=== PATIENT | male | born 2000 | race Caucasian/White ===

== ENCOUNTER 2024-01-04 08:49 | Emergency (ER) | payer SELFPAY ==
[2024-01-04 08:53] VITALS: BP 134/82; PULSE 65; TEMP 36.7; O2SAT 100; BMI 36.3
--- NOTE | 2024-01-04 09:02 | XR_ITS ---
The [address] [address] Patient Name: ROBBY CELIS MRN: [id number] date: 2000 Sex: M Assigned Patient Location: ED.MAIN Current Patient Location: Accession/Order Number: [id number] Exam Date: 01/04/2024 09:18 Report Date: 01/04/2024 10:21 At the request of: NOE RUIZ Procedure: XR wrist RT min 3V PROCEDURE: XR hand RT min 3V, XR wrist RT min 3V HISTORY: Trauma ; fall from roof 6 days ago COMPARISON: None. FINDINGS: BONES:Nondisplaced fracture through base of ulnar styloid process. SOFT TISSUES:No visible soft tissue swelling. EFFUSION:None visible. OTHER: Negative. XR/XR wrist RT min 3V IMPRESSION: 1. Acute, nondisplaced ulnar styloid process fracture. Electronically authenticated by: KAY ARNDT Date: 01/04/2024 10:21
--- NOTE | 2024-01-04 09:02 | XR_ITS ---
The [address] [address] Patient Name: ROBBY CELIS MRN: [id number] date: 2000 Sex: M Assigned Patient Location: ED.MAIN Current Patient Location: Accession/Order Number: [id number] Exam Date: 01/04/2024 09:18 Report Date: 01/04/2024 10:21 At the request of: NOE RUIZ Procedure: XR hand RT min 3V PROCEDURE: XR hand RT min 3V, XR wrist RT min 3V HISTORY: Trauma ; fall from roof 6 days ago COMPARISON: None. FINDINGS: BONES:Nondisplaced fracture through base of ulnar styloid process. SOFT TISSUES:No visible soft tissue swelling. EFFUSION:None visible. OTHER: Negative. XR/XR hand RT min 3V IMPRESSION: 1. Acute, nondisplaced ulnar styloid process fracture. Electronically authenticated by: KAY ARNDT Date: 01/04/2024 10:21
--- NOTE | 2024-01-04 09:39 | ED.UPPEXIN1 ---
HPI HPI - Extremity Injury (Upper) General Chief Complaint: Extremity Injury, Upper Stated Complaint: Extremity Injury, Upper Time Seen by Provider: 01/04/24 09:02 Source: patient Mode of arrival: walk-in History of Present Illness HPI narrative: Patient is here complaining of pain in his right wrist. He fell from a roof several days ago. He was evaluated at a different institution with x-rays there being told they were negative. He is right-handed dominant. He also has some bruising to his anterior lateral chest wall images were not done in that area. He denies any shortness of breath or chest discomfort. He says sometimes when he coughs it is a little sore. Does not any pain in his left chest or in the sternum. No head or neck injury at the time. No injury to his lower extremities. He has bruising of his upper biceps area but no pain in his elbow. He only discomfort is over the distal forearm on the ulnar side of the wrist. Related Data Home Medications ?Medication ?Instructions ?Recorded ?Confirmed No Known Home Medications 01/04/24 01/04/24 Allergies Allergy/AdvReac Type Severity Reaction Status Date / Time Cephalosporins Allergy Severe itching Verified 01/04/24 08:56 Opioid HPI Opioid Management Most Recent Pain and Opioid Data: No Data to Display Exam Narrative Exam Narrative: Well-hydrated well-nourished male vital signs are stable no respiratory distress. He has no apparent head or neck injury. Spontaneous cervical range of motion. No bruising to head and neck. Extremities show ecchymosis tenderness and discomfort over the dorsal and ulnar aspect of his distal forearm. Neurovascular examination is normal. There does not appear to be any rotational deformity of the digits. The elbow is asymptomatic. The shoulder joint is asymptomatic. He does not have any crepitation. Minor discomfort with aggressive palpation of his right chest wall. No tenderness in the right upper quadrant. I do not believe he is got any likelihood of liver or splenic injury. Constitutional Vital Signs, click to edit/add: Last Vital Signs Temp 98.0 F 01/04/24 08:53 Pulse 65 01/04/24 08:53 Resp 16 01/04/24 08:53 BP 134/82 01/04/24 08:53 Pulse Ox 100 01/04/24 08:53 O2 Del Method Room Air 01/04/24 08:53 Course Vital Signs Vital signs: Vital Signs Temperature 98.0 F 01/04/24 08:53 Pulse Rate 65 01/04/24 08:53 Respiratory Rate 16 01/04/24 08:53 Blood Pressure 134/82 01/04/24 08:53 Pulse Oximetry 100 01/04/24 08:53 Oxygen Delivery Method Room Air 01/04/24 08:53 Temperature 98.0 F 01/04/24 08:53 Pulse Rate 65 01/04/24 08:53 Respiratory Rate 16 01/04/24 08:53 Blood Pressure 134/82 01/04/24 08:53 Pulse Oximetry 100 01/04/24 08:53 Oxygen Delivery Method Room Air 01/04/24 08:53 MDM - Extremity Injury (Upper) MDM Narrative Medical decision making narrative: We agree that imaging of the chest would not be necessary at this time. X-rays of his wrist and hand do confirm a slightly displaced distal ulnar fracture. This will be read by the radiologist but he is clinically symptomatic in this area and the bare minimum has ligamentous injury. We will place him in a immobilizing splint to the wrist. Will follow-up with visit with Dr. Freeman this coming Monday. Discharge Plan Discharge Stand Alone Forms: Portal Instructions Chief Complaint: Extremity Injury, Upper Clinical Impression: Fracture of right ulna Patient Disposition: Home, Self-Care Time of Disposition Decision: 09:41 Prescriptions / Home Meds: No Action No Known Home Medications Print Language: Frisian Additional Instructions: Wear splint at all times/follow-up with Dr. Freeman this week Referrals: LEO BAEZ [Primary Care Provider] - 1 week
== END 2024-01-04 09:52 | disposition home or self-care (01) ==
PROVIDERS: Emergency Provider Emergency Medicine Emergency Medical Services; PCP Family Medicine
DX: S52.601A Unspecified fracture of lower end of right ulna, initial encounter for closed fracture (principal); W13.2XXA Fall from, out of or through roof, initial encounter
CPT/HCPCS: 73110; 73130; 99284

== ENCOUNTER 2024-01-15 11:57 | Outpatient (OUT) | payer OTHER, SELFPAY ==
--- NOTE | 2024-01-15 | XR_ITS ---
The [address] [address] Patient Name: ROBBY CELIS MRN: [id number] date: 2000 Sex: M Assigned Patient Location: Current Patient Location: Accession/Order Number: [id number] Exam Date: 01/15/2024 12:10 Report Date: 01/16/2024 13:04 At the request of: KAY AGUIRRE Procedure: XR wrist RT min 3V PROCEDURE: XR wrist RT min 3V COMPARISON: 01/04/2024 HISTORY: RIGHT WRIST PAIN FINDINGS: BONES:Lucency again demonstrated through the base of the ulnar styloid process consistent with a fracture, unchanged from the prior exam. No new fracture or dislocation SOFT TISSUES:Negative. No visible soft tissue swelling. EFFUSION:None visible. OTHER: Negative. XR/XR wrist RT min 3V IMPRESSION: Stable fracture ulnar styloid process Electronically authenticated by: JACOB SHELTON Date: 01/16/2024 13:04
== END 2024-01-15 11:58 | disposition home or self-care (01) ==
LOC: EC 11:57
PROVIDERS: PCP Family Medicine; Visit Provider Orthopaedic Surgery
DX: S52.614D Nondisplaced fracture of right ulna styloid process, subsequent encounter for closed fracture with routine healing (principal)
CPT/HCPCS: 73110

== ENCOUNTER 2024-02-12 10:13 | Outpatient (OUT) | payer OTHER, SELFPAY ==
--- NOTE | 2024-02-12 | XR_ITS ---
The [address] [address] Patient Name: ROBBY CELIS MRN: [id number] date: 2000 Sex: M Assigned Patient Location: Current Patient Location: Accession/Order Number: [id number] Exam Date: 02/12/2024 10:19 Report Date: 02/14/2024 06:33 At the request of: KAY AGUIRRE Procedure: XR wrist RT min 3V PROCEDURE: XR wrist RT min 3V HISTORY: RIGHT WRIST PAIN COMPARISON: XR wrist right 01/15/2024 FINDINGS: BONES:Increased density of prior fracture line at base of ulnar styloid process. Normal alignment is maintained. Unremarkable radius and carpal bones. SOFT TISSUES:No visible soft tissue swelling. EFFUSION:None visible. OTHER: Negative. XR/XR wrist RT min 3V IMPRESSION: 1. Normal alignment and partial/near complete osseous healing of ulnar styloid process fracture. Electronically authenticated by: KAY ARNDT Date: 02/14/2024 06:33
== END 2024-02-12 10:14 | disposition home or self-care (01) ==
LOC: EC 10:13
PROVIDERS: PCP Family Medicine; Visit Provider Orthopaedic Surgery
DX: S52.614D Nondisplaced fracture of right ulna styloid process, subsequent encounter for closed fracture with routine healing (principal)
CPT/HCPCS: 73110

== ENCOUNTER 2025-03-25 10:05 | Emergency (ER) | payer OTHER, SELFPAY ==
--- OUTSIDE RECORDS SUMMARY | 2025-03-26 08:40 | XMS_ITS | CCD ---
Author Organization [facility] Care Team Providers Care Tender Labor Name Role Phone DR NEENA XIAO Primary Care Unavailable PALOMO MARIEE Admitting Unavailable PALOMO MARIEE Attending Unavailable WAYNE GANDHI Consulting Unavailable Jacob Acharya Consulting Unavailable STEFANIA ZEPEDA Admitting Unavailable STEFANIA ZEPEDA Attending Unavailable DR NEENA XIAO Primary Care Unavailable MERARY ALTMAN Attending Unavailable Unavailable Primary Care Provider UnavailOlivier Franco DO Primary Care Provider OLIVIER POSEY Primary Care Unavailable DEJAN DREW Attending Unavailable DEJAN DREW Attending Unavailable DEJAN DREW Referring Unavailable FURLONG, OLIVIER Palencia Primary Care Unavailable FURLONG, OLIVIER Palencia Attending Unavailable FURLONG, OLIVIER Palencia Referring Unavailable FURLONG, OLIVIER G Primary Care Unavailable Furlong Olivier WADE Primary Care Provider [phone] BRENDEN HYATT Attending Unavailable FURLONG, OLIVIER Palencia Referring Unavailable FURLONG, OLIVIER G Primary Care Unavailable FURLONG, OLIVIER Palencia Attending Unavailable FURLONG, OLIVIER G Referring Unavailable FURLONG, OLIVIER G Primary Care Unavailable FURLONG, OLIVIER G Attending Unavailable FURLONG, OLIVIER G Referring Unavailable FURLONG, OLIVIER G Primary Care Unavailable FURLONG, OLIVIER G Attending Unavailable FURLONG, OLIVIER G Referring Unavailable FURLONG, OLIVIER G Primary Care Unavailable FURLONG, OLIVIER G Attending Unavailable FURLONG, OLIVIER G Referring Unavailable FURLONG, OLIVIER G Primary Care Unavailable FURLONG, OLIVIER G Attending Unavailable FURLONG, OLIVIER G Referring Unavailable FURLONG, OLIVIER G Primary Care Unavailable FURLONG, OLIVIER G Attending Unavailable FURLONG, OLIVIER G Referring Unavailable FURLONG, OLIVIER G Primary Care Unavailable FURLONG, OLIVIER G Attending Unavailable TATY, OLIVIER Palencia Referring Unavailable MONICANG, OLIVIER Palencia Primary Care Unavailable TATY, OLIVIER Palencia Attending Unavailable TATY, OLIVIER Palencia Referring Unavailable TATY, OLIVIER Palencia Primary Care Unavailable Olivier Posey MD Primary Care Provider [phone] MIKA MA Attending Unavailable Sylvia Richards APRN Attending Provider [phone] Olivier Posey DO Primary Care Provider NONE, XXXX Primary Care Physician Unavailab le Allergies Allergy Classification Reported Allergen(s) Allergy Type Date of Onset Reaction(s) Facility (7 sources) Cephalosporins (Antibiotic); Translations: [CEPHALOSPORINS] Drug allergy (disorder) 4 Itching [facility] Repository (1 source) Codeine Drug Allergy [facility] Rep[facility] (1 source) Morphine Drug Allergy [facility] Repository (4 sources) walnut; Translations: [WALNUT] Drug allergy (disorder) 5 [facility] Repository (10 sources) Cephalosporins (Antibiotic) Drug Allergy 0 Rash, Itching [facility] Work Phone: (3 sources) Codeine Drug Allergy 2 Other: See Comments, Unknown [facility] Work Phone: (1 source) Morphine Drug Allergy 2 Other: See Comments [facility] Work Phone: (9 sources) walnut allergenic extract Drug Allergy 5 Other: See Comments, Anaphylaxis, Unknown [facility] Work Phone: (3 sources) Cephalosporins (Antibiotic); Translations: [cephalosporins] Drug Allergy 0 Other, Itching, Rash, Itching (finding) [facility] Medications Current Medications Medication Drug Class(es) Dates Sig (Normalized) Sig (Original) azithromycin 250 mg oral tablet (2 sources) Macrolide Antimicrobial Start: 07-12-2024 End: 07-16-2024 azithromycin (ZITHROMAX) 250 mg tablet Indications: Pneumonia of left lower lobe due to infectious organism Take 2 tablets the first day, then 1 tablet daily for 4 days. 6 tablet 07/12/2024 07/16/2024 Active doxycycline monohydrate 100 mg oral capsule (2 sources) Tetracycline-class Drug Start: 02-03-2025 End: 02-13-2025 doxycycline (Monodox) 100 MG capsule Indications: Abscess , Skin and Soft Tissue Infection Take 1 capsule (100 mg) by mouth in the morning and 1 capsule (100 mg) before bedtime. Do all this for 10 days. Take with at least 8 ounces (large glass) of water, do not lie down for 30 minutes after. 20 capsule 02/03/2025 02/13/2025 Active [id number] 0.3 ml EPINEPHrine 1 mg/ml auto-injector (11 sources) alpha-Adrenergic Agonist, beta-Adrenergic Agonist, Catecholamine Start: 11-24-2022 EPINEPHrine (EPIPEN) 0.3 mg/0.3 mL auto-injector Inject 0.3 mL (0.3 mg total) into the appropriate muscle as needed (allergic reaction to walnuts). 1 each 11/24/2022 Active fluticasone propionate 0.05 mg/actuat metered dose nasal spray (4 sources) Corticosteroid Start: 10-24-2023 take 2 spray(s) nasal route in the morning fluticasone propionate (FLONASE) 50 mcg/actuation nasal spray Indications: Bilateral chronic serous otitis media Administer 2 sprays into each nostril in the morning. 16 g 5 10/24/2023 Active ondansetron 4 mg disintegrating oral tablet (1 source) Serotonin-3 Receptor Antagonist Start: 03-21-2025 take 1 tablet by mouth every eight hours as needed for nausea and vomiting Ondansetron 4 mg tablet,disintegra ting Active 4 MG PO Every 8 hours as needed for nausea and vomiting 15 March 21, 2025 12:00am Complies with drug therapy phentermine hydrochloride 37.5 mg oral capsule (14 sources) Sympathomimetic Amine Anorectic Start: 06-17-2024 End: 09-02-2024 take 32-32.9 capsules by mouth once daily before breakfast phentermine 37.5 MG capsule Indications: Class 1 obesity due to excess calories without serious comorbidity with body mass index (BMI) of 32.0 to 32.9 in adult Take 1 capsule (37.5 mg total) by mouth every morning before breakfast. 30 capsule 09/02/2024 Active Start: 09-21-2023 End: 01-01-2024 take 33-33.9 capsules by mouth once daily before breakfast phentermine 37.5 MG capsule Indications: Class 1 obesity due to excess calories without serious comorbidity with body mass index (BMI) of 33.0 to 33.9 in adult Take 1 capsule (37.5 mg total) by mouth every morning before breakfast. 30 capsule 11/23/2023 01/01/2024 Discontinued (Therapy completed) Completed/Discontinued Medications Medication Drug Class(es) Dates Sig (Normalized) Sig (Original) amoxicillin 875 mg / clavulanate 125 mg oral tablet (2 sources) Penicillin-class Antibacterial Start: 09-16-2024 End: 03-21-2025 take 1 tablet by mouth every twelve hours Amoxicillin-Pot Clavulanate 875-125 mg tablet Discontinued 1 TAB PO Every 12 hours 14 7 September 16, 2024 12:00am March 21, 2025 5:36pm Problems Active Problems Problem Classification Problem Date Documented Da te Episodic/Chronic Anxiety disorders (20 sources) Anxiety; Translations: [Anxiety disorder, unspecified] Onset: 04-22-2020 06-25-2022 Chronic E Codes: Fall (2 sources) Fall Onset: 12-30-2023 Headache; including migraine (12 sources) Migraine; Translations: [Migraine, unspecified, not intractable, without status migrainosus] Onset: 04-19-2022 06-25-2022 Chronic Joint disorders and dislocations; trauma-related (11 sources) Derangement of right knee; Translations: [Unspecified internal derangement of right knee] Onset: 06-10-2019 04-19-2022 Chronic Malaise and fatigue (1 source) Fatigue; Translations: [Other fatigue] Onset: 03-25-2025 Episodic Nausea and vomiting (1 source) Nausea and vomiting; Translations: [Nausea with vomiting, unspecified] Onset: 03-25-2025 Episodic Nonspecific chest pain (4 sources) Chest pain, unspecified; Translations: [CHEST PAIN UNSPECIFIED] Onset: 10-23-2021 Episodic Other connective tissue disease (2 sources) Pain of toe of left foot; Translations: [Pain in left toe(s)] 02-03-2025 Episodic Other gastrointestinal disorders (1 source) Loose stool; Translations: [Other fecal abnormalities] 10-25-2024 Episodic Other gastrointestinal disorders (1 source) Other fecal abnormalities; Translations: [Other fecal abnormalities] Onset: 10-24-2024 Episodic Other gastrointestinal disorders (2 sources) Diarrhea; Translations: [Diarrhea, unspecified] Onset: 10-24-2024 Episodic Other nutritional; endocrine; and metabolic disorders (1 source) Obesity; Translations: [Other obesity due to excess calories] Onset: 04-20-2022 06-25-2022 Chronic Other nutritional; endocrine; and metabolic disorders (19 sources) Obesity caused by energy imbalance; Translations: [Class 2 obesity due to excess calories without serious comorbidity with body mass index (BMI) of 36.0 to 36.9 in adult] Onset: 04-20-2022 Resolved: 12-22-2022 12-22-2022 Chronic Other nutritional; endocrine; and metabolic disorders (1 source) Severe obesity; Translations: [Class 2 severe obesity due to excess calories with serious comorbidity and body mass index (BMI) of 38.0 to 38.9 in adult [place] [place] 08-06-2024 Chronic Other nutritional; endocrine; and metabolic disorders (2 sources) Body mass index 30+ - obesity; Translations: [Obesity, unspecified] 10-24-2023 Chronic Other nutritional; endocrine; and metabolic disorders (1 source) Morbid (severe) obesity due to excess calories; Translations: [Morbid (severe) obesity due to excess calories] Onset: 09-02-2024 Chronic Other nutritional; endocrine; and metabolic disorders (1 source) Body mass index (BMI) 38.0-38.9, adult; Translations: [Body mass index (BMI) 38.0-38.9, adult] Onset: 09-02-2024 Chronic Other nutritional; endocrine; and metabolic disorders (1 source) Other obesity due to excess calories; Translations: [Other obesity due to excess calories] Onset: 08-13-2024 Chronic Other nutritional; endocrine; and metabolic disorders (1 source) Body mass index (BMI) 34.0-34.9, adult; Translations: [Body mass index (BMI) 34.0-34.9, adult] Onset: 08-13-2024 Chronic Other nutritional; endocrine; and metabolic disorders (1 source) Body mass index (BMI) 36.0-36.9, adult; Translations: [Body mass index (BMI) 36.0-36.9, adult] Onset: 12-22-2022 Chronic Other nutritional; endocrine; and metabolic disorders (1 source) Body mass index (BMI) 37.0-37.9, adult; Translations: [Body mass index (BMI) 37.0-37.9, adult] Onset: 01-01-2024 Chronic Other skin disorders (2 sources) Ingrowing great toenail; Translations: [Ingrowing nail] 10-25-2024 Episodic Other skin disorders (1 source) Ingrowing nail; Translations: [Ingrowing nail] Onset: 10-24-2024 Episodic Other skin disorders (2 sources) Ingrowing nail; Translations: [Ingrowing nail] 02-03-2025 Episodic Otitis media and related conditions (1 source) Bilateral chronic serous otitis; Translations: [Chronic serous otitis media, bilateral] 10-24-2023 Chronic Residual codes; unclassified (1 source) Chill; Translations: [Chills (without fever)] Onset: 03-25-2025 Episodic Skin and subcutaneous tissue infections (3 sources) Abscess of toe of left foot; Translations: [Cutaneous abscess of left foot] 02-03-2025 Episodic Unclassified (1 source) ESOPHAGITIS UNSPEC WITHOUT BLEEDING; Translations: [ESOPHAGITIS UNSPEC WITHOUT BLEEDING] Onset: 10-25-2021 Unclassified (1 source) EMS Onset: 12-30-2023 Unclassified (1 source) Obesity, class 1; Translations: [Obesity, class 1] Onset: 08-13-2024 Unclassified (1 source) Obesity, class 2; Translations: [Obesity, class 2] Onset: 12-22-2022 Unclassified (1 source) Weight Check Onset: 07-16-2024 Unclassified (1 source) Mass Onset: 03-18-2024 Viral infection (1 source) Viral disease; Translations: [Viral infection, unspecified] Episodic Past or Other Problems Problem Classification Problem Date Documented Da te Episodic/Chronic Allergic reactions (12 sources) Allergic reaction; Translations: [Allergy, unspecified, initial encounter] Onset: 09-23-2020 06-25-2022 Episodic E Codes: Fall (1 source) Unspecified fall, initial encounter; Translations: [Unspecified fall, initial encounter] Onset: 12-30-2023 Episodic Esophageal disorders (12 sources) Esophagitis; Translations: [Esophagitis, unspecified without bleeding] Onset: 10-25-2021 06-25-2022 Episodic Mood disorders (11 sources) Mood disorders Onset: 03-18-2024 Resolved: 06-17-2024 06-17-2024 Other connective tissue disease (1 source) Other specified soft tissue disorders; Translations: [Other disorders of soft tissue] 03-18-2024 Episodic Other injuries and conditions due to external causes (12 sources) Angioedema; Translations: [Angioneurotic edema, initial encounter] Onset: 09-23-2020 06-25-2022 Episodic Other injuries and conditions due to external causes (9 sources) Abrasion and/or friction burn of multiple sites; Translations: [Unspecified multiple injuries, initial encounter] Onset: 01-01-2024 01-01-2024 Episodic Other injuries and conditions due to external causes (2 sources) Unspecified multiple injuries, initial encounter; Translations: [Unspecified multiple injuries, initial encounter] Onset: 12-30-2023 Episodic Other injuries and conditions due to external causes (1 source) Unspecified injury of thorax, initial encounter; Translations: [Unspecified injury of thorax, initial encounter] Onset: 12-30-2023 Episodic Other lower respiratory disease (2 sources) Cough; Translations: [Acute cough] Onset: 07-12-2024 Episodic Other lower respiratory disease (12 sources) Lung mass; Translations: [Other nonspecific abnormal finding of lung field] Onset: 04-19-2022 06-25-2022 Episodic Other non-traumatic joint disorders (11 sources) Pain in right shoulder; Translations: [Pain in joint, shoulder region] Onset: 04-19-2022 04-19-2022 Episodic Other non-traumatic joint disorders (11 sources) Ankle pain; Translations: [Pain in right ankle and joints of right foot] Onset: 04-20-2022 04-20-2022 Episodic Other nutritional; endocrine; and metabolic disorders (1 source) Weight loss Onset: 06-17-2024 Episodic Other upper respiratory disease (1 source) Pain in throat Onset: 07-12-2024 Episodic Other upper respiratory infections (2 sources) Upper respiratory infection; Translations: [Acute upper respiratory infection, unspecified] Onset: 07-12-2024 07-12-2024 Episodic Pneumonia (except that caused by tuberculosis or sexually transmitted disease) (4 sources) Left lower zone pneumonia; Translations: [Pneumonia, unspecified organism] Onset: 07-16-2024 07-12-2024 Episodic Spondylosis; intervertebral disc disorders; other back problems (11 sources) Backache; Translations: [Dorsalgia, unspecified] Onset: 04-19-2022 04-19-2022 Episodic Sprains and strains (20 sources) Sprain of right ankle; Translations: [Sprain of unspecified ligament of right ankle, sequela] Onset: 04-19-2022 04-19-2022 Episodic Superficial injury; contusion (12 sources) Right wrist contusion; Translations: [Contusion of right wrist, initial encounter] Onset: 12-30-2023 01-01-2024 Episodic Results Test Name Value Interpretation Reference Range Facility XR CHEST 2 VWSon 07-17-2024 XR CHEST 2 VWS XR CHEST 2 VWS XR CHEST 2 VWS HISTORY: Left lower lobe pneumonia, cough COMPARISON: None FINDINGS: PA and lateral upright films obtained. The cardiomediastinal silhouette is within normal limits. No sizeable pneumothorax or pleural effusion. No focal consolidation. IMPRESSION: * No acute cardiopulmonary process. Approved by Myke Abdalla MD on 07/17/2024 7:34 AM IVasu MD have personally reviewed the image(s) and agree with and/or edited the report Finalized by Vasu Hernández MD on 07/17/2024 8:20 AM Normal [facility] POCT Influenza A/Influenza B /SARS-COV-2 VeritorOrdered By: Shania Davis on 07-12-2024 External Poct Influenza A Antigen Negative [facility] External Poct Influenza B Antigen Negative [facility] SARS-CoV-2 (COVID-19) Ag IA.rapid Ql (Resp) Negative [facility] XR WRIST RT MIN 3 VWSon 12-02 XR WRIST RT MIN 3 VWS XR WRIST RT MIN 3 VWS CLINICAL INFORMATION: Injury TECHNIQUE: XR WRIST RT MIN 3 VWS 3 views right wrist were obtained. There is no acute osseous, articular, or soft tissue abnormality. IMPRESSION: Negative exam. Finalized by Kaden Crandall MD on 12/30/2023 11:18 AM [facility] CARDIAC SUZY ADMITon 022 CK [Catalytic activity/Vol] 249 U/L Normal 39-308 [facility] Comment on above: Performed By: #### C MADM LIPA, CMP #### [facility] [address] [address] [address] Elsa Zambrano CK.MB [Mass/Vol] 2.07 ng/mL Normal <=3.60 [facility] Comment on above: Performed By: #### C YOVANY YAA, CMP #### [facility] [address] [address] [address] Elsa Zambrano HSTROP 17.7 pg/mL Normal 4.0-76.1 [facility] Comment on above: Result Comment: CUT- OFF POINTS HAVE BEEN ESTABLISHED BASED ON THE FOURTH UNIVERSAL DEFINITIONS OF MYOCARDIAL INFARCTION. THE UPPER REFERENCE LIMIT (URL) OF TROPONIN, DEFINED THE 99TH PERCENTILE OF cTnI DISTRIBUTION IN A REFERENCE POPULATION, HAS BEEN CONFIRMED THE DECISION THRESHOLD FOR IA DIAGNOSIS. Performed By: #### C FELTON LIPA, CMP #### [facility] [address] [address] [address] Elsa Zambrano RICHI 123 ng/mL Critically high 16-96 [facility] Comment on above: Performed By: #### C NICKMYOVANYA, CMP #### [facility] [address] [address] [address] Elsa Zambrano CBC AUTO DIFFon 10-23-2021 BASO # 0.0 103/ul Normal 0.0-0.1 [facility] Comment on above: Performed By: #### C BC #### [facility] [address] [address] [address] Elsa Zambrano Basophils/100 WBC (Bld) 0.3 % Normal 0.2-2.0 [facility] Comment on above: Performed By: #### C BC #### [facility] [address] [place] [address] Dr. Elsa Zambrano EO # 0.1 103/ul Normal 0.0-0.7 [facility] Comment on above: Performed By: #### C BC #### [facility] [address] [place] [address] Dr. Elsa Zambrano Eosinophils/100 WBC (Bld) 0.9 % Normal 0.9-7.0 [facility] Comment on above: Performed By: #### C BC #### [facility] [address] [place] [address] Dr. Elsa Zambrano Erythrocyte distribution width (RBC) [Ratio] 12.2 % Normal 11.0-15.0 [facility] Comment on above: Performed By: #### C BC #### [facility] [address] [place] [address] Dr. Elsa Zambrano Hematocrit (Bld) [Volume fraction] 43.4 % Normal 42.0-54.0 [facility] Comment on above: Performed By: #### C BC #### [facility] [address] [place] [address] Dr. Elsa Zambrano Hemoglobin (Bld) [Mass/Vol] 14.5 g/dL Normal 14.0-18.0 [facility] Comment on above: Performed By: #### C BC #### [facility] [address] [place] [address] Dr. Elsa Zambrano IG # 0.04 10e3/ul Critically high 0.00-0.03 [facility] Comment on above: Performed By: #### C BC #### [facility] [address] [place] [address] Dr. Elsa Zambrano IG % 0.3 % Normal 0.0-0.5 [facility] Comment on above: Performed By: #### C BC #### [facility] [address] [place] [address] Dr. Elsa Zambrano LYMPH # 2.0 103/ul Normal 1.2-3.8 [facility] Comment on above: Performed By: #### C BC #### [facility] [address] [place] [address] Dr. Elsa Zambrano Lymphocytes/100 WBC (Bld) 17.1 % Critically low 20.5-60.0 [facility] Comment on above: Performed By: #### C BC #### [facility] [address] [place] [address] Dr. Elsa Zambrano MANUAL DIFF REQ NO Normal [facility] Comment on above: Performed By: #### C BC #### [facility] [address] [place] [address] Dr. Elsa Zambrano MCH (RBC) [Entitic mass] 27.8 pg Normal 25.9-34.0 [facility] Comment on above: Performed By: #### C BC #### [facility] [address] [place] [address] Dr. Elsa Zambrano MCHC (RBC) [Mass/Vol] 33.4 g/dL Normal 29.9-35.2 [facility] Comment on above: Performed By: #### C BC #### [facility] [address] [place] [address] Dr. Elsa Zambrano MCV (RBC) [Entitic vol] 83.3 fL Normal 80.0-94.0 [facility] Comment on above: Performed By: #### C BC #### [facility] [address] [place] [address] Dr. Elsa Zambrano MONO # 0.8 103/ul Normal 0.3-0.8 [facility] Comment on above: Performed By: #### C BC #### [facility] [address] [place] [address] Dr. Elsa Zambrano Monocytes/100 WBC (Bld) 7.1 % Normal 1.7-12.0 [facility] Comment on above: Performed By: #### C BC #### [facility] [address] [place] [address] Dr. Elsa Zambrano NEUT # 8.7 103/ul Critically high 1.4-6.5 [facility] Comment on above: Performed By: #### C BC #### [facility] [address] [place] [address] Dr. Elsa Zambrano Neutrophils/100 WBC (Bld) 74.3 % Normal 43.0-75.0 [facility] Comment on above: Performed By: #### C BC #### [facility] [address] [place] [address] Dr. Elsa Zambrano Platelet mean volume (Bld) [Entitic vol] 9.6 fL Normal 9.5-13.5 [facility] Comment on above: Performed By: #### C BC #### [facility] [address] [place] [address] Dr. Elsa Zambrano PLT 327 103/ul Normal 150-450 [facility] Comment on above: Performed By: #### C BC #### [facility] [address] [place] [address] Dr. Elsa Zambrano RBC 5.21 106/ul Normal 4.70-6.10 [facility] Comment on above: Performed By: #### C BC #### [facility] [address] [place] [address] Dr. Elsa Zambrano WBC 11.7 103/ul Critically high 4.0-11.0 [facility] Comment on above: Performed By: #### C BC #### [facility] [address] [place] [address] Dr. Elsa Zambrano LIPASEon 10-23-2021 Lipase [Catalytic activity/Vol] 56.0 U/L Critically low 73.0-393.0 [facility] Comment on above: Performed By: #### C CL YA, CMP #### [facility] [address] [place] [address] Dr. Elsa Zambrano PROF 14(COMP METB)on 022 Albumin [Mass/Vol] 4.0 g/dL Normal 3.4-5.0 [facility] Comment on above: Performed By: #### C CL YA, CMP #### [facility] [address] [place] [address] Dr. Elsa Zambrano Albumin/Globulin [Mass ratio] 1.1 {ratio} Normal [facility] Comment on above: Performed By: #### C MADM, LIPA, CMP #### [facility] [address] [address] [address] Elsa Zambrano ALP [Catalytic activity/Vol] 117 U/L Critically high 46-116 [facility] Comment on above: Performed By: #### C MADM, LIPA, CMP #### [facility] [address] [address] [address] Elsa Zambrano ALT [Catalytic activity/Vol] 39 U/L Normal 16-63 [facility] [facility] Comment on above: Performed By: #### C MADM, LIPA, CMP #### [facility] [address] [address] [address] Elsa Zambrano Anion gap [Moles/Vol] 11.6 mmol/L Normal [facility] Comment on above: Performed By: #### C MADM, LIPA, CMP #### [facility] [address] [address] [address] Elsa Zambrano AST [Catalytic activity/Vol] 19 U/L Normal 15-37 [facility] Comment on above: Performed By: #### C MADM, LIPA, CMP #### [facility] [address] [address] [address] Elsa Zambrano Bilirubin [Mass/Vol] 0.3 mg/dL Normal 0.2-1.0 [facility] Comment on above: Performed By: #### C MADM, LIPA, CMP #### [facility] [address] [address] [address] Elsa Zambrano Calcium [Mass/Vol] 8.8 mg/dL Normal 8.5-10.1 [facility] Comment on above: Performed By: #### C MADM, LIPA, CMP #### [facility] [address] [address] [address] Elsa Zambrano Chloride [Moles/Vol] 103 mmol/L Normal 98-107 [facility] Comment on above: Performed By: #### C MADM, LIPA, CMP #### [facility] [address] [address] [address] Elsa Zambrano CO2 [Moles/Vol] 28.6 mmol/L Normal 21.0-32.0 [facility] Comment on above: Performed By: #### C MADM, LIPA, CMP #### [facility] [address] [address] [address] Elsa Zambrano Creatinine [Mass/Vol] 1.20 mg/dL Normal 0.70-1.30 [facility] Comment on above: Performed By: #### C MADM, LIPA, CMP #### [facility] [address] [address] [address] Elsa Zambrano EGFR-AF CITIZEN OF [place] >60 Normal >=60 [facility] Comment on above: Performed By: #### C MADM, LIPA, CMP #### [facility] [address] [place] [address] Dr. Elsa Zambrano EGFR-NON AF CITIZEN OF [place] >60 Normal >=60 [facility] Comment on above: Performed By: #### C MADM, LIPA, CMP #### [facility] [address] [place] [address] Dr. Elsa Zambrano Globulin (S) [Mass/Vol] 3.7 g/dL Normal [facility] Comment on above: Performed By: #### C MADM, LIPA, CMP #### [facility] [address] [place] [address] Dr. Elsa Zambrano Glucose [Mass/Vol] 90 mg/dL Normal 74-106 [facility] Comment on above: Performed By: #### C MADM, LIPA, CMP #### [facility] [address] [address] [address] Elsa Zambrano Potassium [Moles/Vol] 4.2 mmol/L Normal 3.5-5.1 [facility] Comment on above: Performed By: #### C MADM, LIPA, CMP #### [facility] [address] [place] [address] Dr. Elsa Zambrano Protein [Mass/Vol] 7.7 g/dL Normal 6.1-8.2 [facility] Comment on above: Performed By: #### C MADM, LIPA, CMP #### [facility] [address] [place] [address] Dr. Elsa Zambrano Sodium [Moles/Vol] 139 mmol/L Normal 136-145 [facility] Comment on above: Performed By: #### C CL YA, CMP #### [facility] [address] [address] [address] Elsa Zambrano Urea nitrogen [Mass/Vol] 21.0 mg/dL Critically high 6.4-19.3 [facility] Comment on above: Performed By: #### C CL YA, CMP #### [facility] [address] [address] [address] Elsa Zambrano Urea nitrogen/Creatinine [Mass ratio] 17.5 mg/mg Normal [facility] Comment on above: Performed By: #### C CL YA, CMP #### [facility] [address] [address] [address] Elsa Zambrano XR CHEST 2 Von 10-23-2021 XR CHEST 2 V EXAMINATION: XR CHES T 2 V HISTORY: Chest pain COMPARISON: Chest x-rays to 2020 TECHNIQUE: PA and lateral chest x-rays FINDINGS: The lung parenchyma is free of consolidation or infiltrate. No pneumothorax or pleural effusion. The cardiac, mediastinal and hilar contours are normal. The visualized osseous structures exhibit no gross abnormality. IMPRESSION: Normal chest x-rays Electronically authenticated by: JACOB ACHARYA Date: 2021-10-23 17:33 Normal [facility] Coding Summary.on 10-05-2018 Coding Summary. CODING DATE: 10/05/2018 FINAL [facility] STATUS: Home (Routine DC) PAYOR: [facility] [place] ADMIT DX: REASON FOR VISIT DX: J06.9 Acute upper respiratory infection, unspecified FINAL DX: PRINCIPAL: J06.9 Acute upper respiratory infection, unspecified SECONDARY: PROCEDURES DOCTOR NAME DATE NOTE: The code number assigned matches the documented diagnosis and / or procedure in the patient's chart. However, the narrative phrase printed from the coding software may appear abbreviated, or result in slightly different terminology. Coded By: Milagro Atkins CphT Date Saved: 10/05/2018 12:44 pm Normal [facility] C Strep Screenon 09-22-2018 Protein mass conc Microbiology PROCEDURE: Strep Screen Culture [R1] SOURCE: Throat BODY SITE: COLLECTED DATE/TIME: 09/20/2018 11:23 EDT RECEIVED DATE/TIME: 09/20/2018 19:18 EDT START DATE/TIME: 09/20/2018 19:18 EDT FREE TEXT SOURCE: ALVARO AGUILAR, Rashaad JOHN MD, Rashaad Brunner FINAL REPORTS Final Report [] Verified Date/Time: 09/22/2018 07:03 EDT No Pathogenic Streptococcus Isolated Performing Locations R1: This test was performed at: [facility], [address] [place] [address], [id number] , [facility] Comment on above: Performed By: #### [id number] #### [facility] [address] [place] [id number] Vital Signs Date Time Vital Sign Value Performing Clinician Facility 03-21-2025 17:41-0400 Body height 180.34 cm Olivier Furlong DO Work Phone: [facility] 03-21-2025 17:41-0400 Body mass index (BMI) [Ratio] 34.1 kg/m2 Olivier Furlong DO Work Phone: [facility] 03-21-2025 17:41-0400 Body temperature 98.3 [degF] Olivier Furlong DO Work Phone: [facility] 03-21-2025 17:41-0400 Body weight 110.9 kg Olivier Furlong DO Work Phone: [facility] 03-21-2025 17:41-0400 Diastolic blood pressure 69 mm[Hg] Olivier Furlong DO Work Phone: [facility] 03-21-2025 17:41-0400 Heart rate 87 /min Olivier Furlong DO Work Phone: [facility] 03-21-2025 17:41-0400 Respiratory rate 18 /min Olivier Furlong DO Work Phone: [facility] 03-21-2025 17:41-0400 SaO2% (BldA) [Mass fraction] 96 % Olivier Fonsecalong DO Work Phone: [facility] 03-21-2025 17:41-0400 Systolic blood pressure 113 mm[Hg] Olivier Fonsecalong DO Work Phone: [facility] 02-03-2025 10:15-0400 Body height 182.9 cm Mika Ma DPM FACFAS Work Phone: [facility] 02-03-2025 10:15-0400 Body mass index (BMI) [Ratio] 32.01 kg/m2 Mika Ma DPM FACFAS Work Phone: [facility] 02-03-2025 10:15-0400 Body weight 107.05 kg Mika Ma DPM FACFAS Work Phone: [facility] 02-03-2025 10:15-0400 Diastolic blood pressure 76 mm[Hg] Mika Ma DPM FACFAS Work Phone: [facility] 02-03-2025 10:15-0400 Heart rate 82 /min Mika Ma DPM FACFAS Work Phone: [facility] 02-03-2025 10:15-0400 Systolic blood pressure 126 mm[Hg] Mika Ma DPM FACFAS Work Phone: [facility] 10-24-2024 15:17-0400 Body height 177.8 cm Brenden Hyatt HEALTHCARE SCIENCE SPECIALIST-PHYSIOTHERAPY AIDE Work Phone: [facility] 10-24-2024 15:17-0400 Body mass index (BMI) [Ratio] 33.92 kg/m2 Brenden Hyatt HEALTHCARE SCIENCE SPECIALIST-PHYSIOTHERAPY AIDE Work Phone: [facility] 10-24-2024 15:17-0400 Body temperature 98.29 [degF] Brenden Hyatt HEALTHCARE SCIENCE SPECIALIST-PHYSIOTHERAPY AIDE Work Phone: [facility] 10-24-2024 15:17-0400 Body weight 107.23 kg Brenden PINA Work Phone: [facility] [employer] [facility] 10-24-2024 15:17-0400 Diastolic blood pressure 60 mm[Hg] Brenden Hyatt APRN-PHYSIOTHERAPY AIDE Work Phone: [facility] [employer] [facility] 10-24-2024 15:17-0400 Heart rate 90 /min Brenden Hyatt APRN-PHYSIOTHERAPY AIDE Work Phone: [facility] [employer] [facility] 10-24-2024 15:17-0400 Respiratory rate 18 /min Brenden Hyatt APRN-PHYSIOTHERAPY AIDE Work Phone: [facility] [employer] [facility] 10-24-2024 15:17-0400 SaO2% (BldA) [Mass fraction] 98 % Brenden Hyatt APRN-PHYSIOTHERAPY AIDE Work Phone: [facility] 10-24-2024 15:17-0400 Systolic blood pressure 100 mm[Hg] Brenden Hyatt APRN-PHYSIOTHERAPY AIDE Work Phone: [facility] 09-16-2024 14:51-0400 Body height 180.34 cm [facility] 09-16-2024 14:51-0400 Body mass index (BMI) [Ratio] 33 kg/m2 [facility] 09-16-2024 14:51-0400 Body temperature 97.8 [degF] [facility] 09-16-2024 14:51-0400 Body weight 107.5 kg [facility] 09-16-2024 14:51-0400 Diastolic blood pressure 82 mm[Hg] [facility] 09-16-2024 14:51-0400 Heart rate 58 /min [facility] 09-16-2024 14:51-0400 Respiratory rate 18 /min [facility] 09-16-2024 14:51-0400 SaO2% (BldA) [Mass fraction] 98 % [facility] 09-16-2024 14:51-0400 Systolic blood pressure 134 mm[Hg] [facility] 09-02-2024 18:08-0500 Body mass index (BMI) [Ratio] 32.71 kg/m2 Olivier Furlong DO Work Phone: [facility] 09-02-2024 18:08-0500 Body weight 103.42 kg Olivier Furlong DO Work Phone: [facility] [employer] [facility] 09-02-2024 18:08-0500 Heart rate 85 /min Olivier Furlong DO Work Phone: [facility] 09-02-2024 18:08-0500 SaO2% (BldA) [Mass fraction] 99 % Olivier Furlong DO Work Phone: [facility] 08-13-2024 16:01-0500 Body height 177.8 cm Olivier Furlong DO Work Phone: [facility] 08-13-2024 16:01-0500 Body mass index (BMI) [Ratio] 34.12 kg/m2 Olivier Furlong DO Work Phone: [facility] [employer] [facility] 08-13-2024 16:01-0500 Body temperature 98.49 [degF] Olivier Furlong DO Work Phone: [facility] 08-13-2024 16:01-0500 Body weight 107.86 kg Olivier Furlong DO Work Phone: [facility] 08-13-2024 16:01-0500 Diastolic blood pressure 70 mm[Hg] Olivier Furlong DO Work Phone: [facility] [employer] [facility] 08-13-2024 16:01-0500 Heart rate 90 /min Olivier Furlong DO Work Phone: [facility] 08-13-2024 16:01-0500 Respiratory rate 18 /min Olivier Furlong DO Work Phone: [facility] 08-13-2024 16:01-0500 SaO2% (BldA) [Mass fraction] 98 % Olivier Furlong DO Work Phone: [facility] [employer] [facility] 08-13-2024 16:01-0500 Systolic blood pressure 100 mm[Hg] Olivier Furlong DO Work Phone: [facility] 07-16-2024 14:45-0500 Body height 177.8 cm Olivier Furlong DO Work Phone: [facility] 07-16-2024 14:45-0500 Body mass index (BMI) [Ratio] 36.19 kg/m2 Olivier Furlong DO Work Phone: [facility] 07-16-2024 14:45-0500 Body temperature 98.01 [degF] Olivier Furlong DO Work Phone: [facility] 07-16-2024 14:45-0500 Body weight 114.4 kg Olivier Furlong DO Work Phone: [facility] 07-16-2024 14:45-0500 Diastolic blood pressure 78 mm[Hg] Olivier Furlong DO Work Phone: [facility] 07-16-2024 14:45-0500 Heart rate 129 /min Olivier Furlong DO Work Phone: [facility] 07-16-2024 14:45-0500 Respiratory rate 18 /min Olivier Furlong DO Work Phone: [facility] 07-16-2024 14:45-0500 SaO2% (BldA) [Mass fraction] 99 % Olivier Furlong DO Work Phone: [facility] 07-16-2024 14:45-0500 Systolic blood pressure 100 mm[Hg] Olivier Furlong DO Work Phone: [facility] 07-12-2024 09:29-0500 Body height 177.8 cm Olivier Furlong DO Work Phone: [facility] 07-12-2024 09:29-0500 Body mass index (BMI) [Ratio] 35.99 kg/m2 Olivier Furlong DO Work Phone: [facility] 07-12-2024 09:29-0500 Body temperature 99.39 [degF] Olivier Furlong DO Work Phone: [facility] 07-12-2024 09:29-0500 Body weight 113.76 kg Olivier Furlong DO Work Phone: [facility] 07-12-2024 09:29-0500 Diastolic blood pressure 60 mm[Hg] Olivier Furlong DO Work Phone: [facility] 07-12-2024 09:29-0500 Heart rate 118 /min Olivier Furlong DO Work Phone: [facility] 07-12-2024 09:29-0500 Respiratory rate 20 /min Olivier Furlong DO Work Phone: [facility] 07-12-2024 09:29-0500 SaO2% (BldA) [Mass fraction] 96 % Olivier Furlong DO Work Phone: [facility] 07-12-2024 09:29-0500 Systolic blood pressure 100 mm[Hg] Olivier Furlong DO Work Phone: [facility] [employer] [facility] 03-18-2024 13:32-0400 Body height 177.8 cm Olivier Furlong DO Work Phone: [facility] 03-18-2024 13:32-0400 Body mass index (BMI) [Ratio] 36.27 kg/m2 Olivier Furlong DO Work Phone: [facility] 03-18-2024 13:32-0400 Body temperature 98.4 [degF] Olivier Furlong DO Work Phone: [facility] 03-18-2024 13:32-0400 Body weight 114.67 kg Olivier Furlong DO Work Phone: [facility] 03-18-2024 13:32-0400 Diastolic blood pressure 68 mm[Hg] Olivier Furlong DO Work Phone: [facility] 03-18-2024 13:32-0400 Heart rate 67 /min Olivier Furlong DO Work Phone: [facility] [employer] [facility] 03-18-2024 13:32-0400 Respiratory rate 18 /min Olivier Furlong DO Work Phone: [facility] 03-18-2024 13:32-0400 SaO2% (BldA) [Mass fraction] 97 % Olivier Furlong DO Work Phone: [facility] 03-18-2024 13:32-0400 Systolic blood pressure 122 mm[Hg] Olivier Furlong DO Work Phone: [facility] 01-01-2024 13:18-0400 Body height 177.8 cm Olivier Furlong DO Work Phone: [facility] 01-01-2024 13:18-0400 Body mass index (BMI) [Ratio] 37.19 kg/m2 Olivier Furlong DO Work Phone: [facility] 01-01-2024 13:18-0400 Body temperature 98.29 [degF] Olivier Furlong DO Work Phone: [facility] 01-01-2024 13:18-0400 Body weight 117.57 kg Olivier Furlong DO Work Phone: [facility] 01-01-2024 13:18-0400 Diastolic blood pressure 70 mm[Hg] Olivier Furlong DO Work Phone: [facility] 01-01-2024 13:18-0400 Heart rate 82 /min Olivier Furlong DO Work Phone: [facility] 01-01-2024 13:18-0400 SaO2% (BldA) [Mass fraction] 97 % Olivier Furlong DO Work Phone: [facility] 01-01-2024 13:18-0400 Systolic blood pressure 110 mm[Hg] Olivier Furlong DO Work Phone: [facility] 11-23-2023 13:00-0400 Body height 180.3 cm Olivier Furlong DO Work Phone: [facility] 11-23-2023 13:00-0400 Body mass index (BMI) [Ratio] 33.54 kg/m2 Olivier Furlong DO Work Phone: [facility] 11-23-2023 13:00-0400 Body temperature 98.6 [degF] Olivier Furlong DO Work Phone: [facility] 11-23-2023 13:00-0400 Body weight 109.09 kg Olivier Furlong DO Work Phone: [facility] 11-23-2023 13:00-0400 Diastolic blood pressure 70 mm[Hg] Olivier Furlong DO Work Phone: [facility] 11-23-2023 13:00-0400 Heart rate 97 /min Olivier Furlong DO Work Phone: [facility] 11-23-2023 13:00-0400 Respiratory rate 18 /min Olivier Furlong DO Work Phone: [facility] 11-23-2023 13:00-0400 SaO2% (BldA) [Mass fraction] 97 % Olivier Furlong DO Work Phone: [facility] 11-23-2023 13:00-0400 Systolic blood pressure 100 mm[Hg] Olivier Furlong DO Work Phone: [facility] 10-24-2023 13:34-0400 Body height 180.3 cm Olivier Furlong DO Work Phone: [facility] 10-24-2023 13:34-0400 Body mass index (BMI) [Ratio] 35.45 kg/m2 Olivier Furlong DO Work Phone: [facility] 10-24-2023 13:34-0400 Body temperature 98.29 [degF] Olivier Furlong DO Work Phone: [facility] [employer] [facility] 10-24-2023 13:34-0400 Body weight 115.3 kg Olivier Furlong DO Work Phone: [facility] [employer] [facility] 10-24-2023 13:34-0400 Diastolic blood pressure 70 mm[Hg] Olivier Furlong DO Work Phone: [facility] 10-24-2023 13:34-0400 Heart rate 98 /min Olivier Furlong DO Work Phone: [facility] 10-24-2023 13:34-0400 SaO2% (BldA) [Mass fraction] 97 % Olivier Furlong DO Work Phone: [facility] [employer] [facility] 10-24-2023 13:34-0400 Systolic blood pressure 112 mm[Hg] Olivier Furlong DO Work Phone: [facility] 09-21-2023 14:50-0400 Diastolic blood pressure 80 mm[Hg] Olivier Furlong DO Work Phone: [facility] 09-21-2023 14:50-0400 Systolic blood pressure 112 mm[Hg] Olivier Furlong DO Work Phone: [facility] [employer] [facility] 09-21-2023 14:07-0400 Body height 180.3 cm Olivier Furlong DO Work Phone: [facility] 09-21-2023 14:07-0400 Body mass index (BMI) [Ratio] 35.04 kg/m2 Olivier Furlong DO Work Phone: [facility] 09-21-2023 14:07-0400 Body temperature 98.91 [degF] Olivier Posey DO Work Phone: [employer] 09-21-2023 14:07-0400 Body weight 113.94 kg [facility]insng [facility] 09-21-2023 14:07-0400 Heart rate 81 /min [facility] 09-21-2023 14:07-0400 Respiratory rate 18 /min Olivier Martinsng DO [facility] 09-21-2023 [id number] SaO2% (BldA) [Mass fraction] 97 % Olivier Martinsng DO Work Phone: [facility] Encounters Encounter Date Encounter Type Care Provider Facility Start: 03-25-2025 End: 03-25-2025 Patient encounter procedure Jasmina Wheeler [facility] Start: 03-21-2025 End: 03-21-2025 ambulatory Olivier Posey DO Work Phone: [facility] Work Phone: Start: 03-21-2025 End: 03-21-2025 Patient encounter procedure Sylvia Gloria HEALTHCARE SCIENCE SPECIALIST [facility] Work Phone: Start: 02-03-2025 End: 02-03-2025 Bamboo flowsheet Mika Ma DPM FACFAS [facility] Start: 02-03-2025 End: 02-03-2025 Bamboo flowsheet Mika Ma DPM FACFAS [facility] Phone[facility] Start: 02-03-2025 End: 02-03-2025 Office outpatient new 30 minutes Mika Ma DPM FACFAS Work Phone: [facility] Comment on above: Abscess, toe, left ( Primary Dx); Onychocryptosis; Pain in left toe(s) Start: 02-03-2025 End: 02-03-2025 ambulatory MIKA MA Not Available Start: 10-24-2024 End: 10-24-2024 ambulatory [facility] Start: 10-24-2024 End: 10-24-2024 Office outpatient visit 15 minutes [facility] HEALTHCARE SCIENCE SPECIALIST-PHYSIOTHERAPY AIDE [facility] Comment on above: Loose stools (Primar y Dx); Ingrown left big toenail Start: 09-16-2024 End: 09-16-2024 ambulatory [facility] Work Phone: Start: 09-16-2024 End: 09-16-2024 Patient encounter procedure [facility] Work Phone: Start: 09-02-2024 End: 09-02-2024 ambulatory [facility] Start: 09-02-2024 End: 09-02-2024 Office outpatient visit 10 minutes Olivier Slime Taty DO Work Phone: [facility] Comment on above: Class 1 obesity due to excess calories without serious comorbidity with body mass index (BMI) of 32.0 to 32.9 in adult Start: 08-13-2024 End: 08-13-2024 Office outpatient visit 15 minutes Olivier Slime Fonsecasantang DO Work Phone: [facility] Comment on above: Class 1 obesity due to excess calories without serious comorbidity with body mass index (BMI) of 34.0 to 34.9 in adult (Primary Dx) Start: 08-13-2024 End: 08-13-2024 ambulatory [facility] Start: 08-06-2024 End: 08-06-2024 Refill [facility] DO Work Phone: [facility] Comment on above: Class 2 severe obesi ty due to excess calories with serious comorbidity and body mass index (BMI) of 38.0 to 38.9 in adult ([facility]) Start: 07-16-2024 End: 07-16-2024 [facility] Start: 07-16-2024 End: 07-16-2024 Office outpatient visit 25 minutes [facility] Work Phone: [facility] Comment on above: Class 2 obesity due to excess calories without serious comorbidity with body mass index (BMI) of 36.0 to 36.9 in adult (Primary Dx); Pneumonia of left lower lobe due to infectious organism Start: 07-16-2024 End: 07-16-2024 [facility] Start: 07-12-2024 End: 07-12-2024 Office outpatient visit 15 minutes [facility] DO [facility] Comment on above: Pneumonia of left lo wer lobe due to infectious organism (Primary Dx); Upper respiratory tract infection, unspecified type Start: 07-12-2024 End: 07-12-2024 [facility] Start: 06-17-2024 End: 06-17-2024 [facility] Start: 03-18-2024 End: 03-18-2024 Office outpatient visit 10 minutes [facility] Work Phone: [facility] Comment on above: Mass of soft tissue of ankle (Primary Dx) Start: 03-18-2024 End: 03-18-2024 ambulatory [facility] Start: 01-01-2024 End: 01-01-2024 Office outpatient visit 15 minutes Olivierchuy Posey DO [facility] Comment on above: Multiple abrasions ( Primary Dx); Class 2 obesity due to excess calories without serious comorbidity with body mass index (BMI) of 37.0 to 37.9 in adult; Contusion of right wrist, subsequent encounter Start: 01-01-2024 End: 01-01-2024 ambulatory [facility] Start: 12-30-2023 End: 12-31-2023 Emergency department patient visit DEJAN DREW [facility] Start: 11-23-2023 End: 11-23-2023 Office outpatient visit 15 minutes [facility] Mariananshu DO Work Phone: [facility] Internal Medicine - Family Medicine Comment on above: Class 1 obesity due to excess calories without serious comorbidity with body mass index (BMI) of 33.0 to 33.9 in adult (Primary Dx) Start: 11-23-2023 End: 11-23-2023 ambulatory [facility] Start: 10-24-2023 End: 10-24-2023 Office outpatient visit 15 minutes Olivier Fonsecaanshu DO Work Phone: [facility] Internal [facility] - Family Medicine Comment on above: Obesity (BMI 35.0-39 .9 without comorbidity) (Primary Dx); Bilateral chronic serous otitis media Start: 09-21-2023 End: 09-21-2023 Office outpatient visit 15 minutes Olivier Posey DO Work Phone: [facility] - Family Medicine Comment on above: Obesity (BMI 35.0-39 .9 without comorbidity) (Primary Dx) Start: 06-25-2022 End: 06-25-2022 ambulatory MERARY ALTMAN Facility:[facility] Start: 06-25-2022 End: 06-25-2022 ambulatory Merary Altman HEALTHCARE SCIENCE SPECIALIST.PHYSIOTHERAPY AIDE Work Phone: Telemedicine Comment on above: Viral illness (Prima ry Dx); Acute cough Start: 06-25-2022 End: 06-25-2022 Telemedicine consultation with patient Merary Altman HEALTHCARE SCIENCE SPECIALIST.PHYSIOTHERAPY AIDE Work Phone: [facility] Start: 10-23-2021 End: 10-23-[address] NEENA XIAO Facility: Start: 01-20-2021 ambulatory STEFANIA KATELYN Facilit y:H1 Procedures Date Procedure Procedure Detail Performing Clinician Start: 07-12-2024 POCT INFLUENZA A/INFLUENZA B/SARS-COV-2 VERITOR Olivier Posey DO Work Phone: Start: 06-17-2024 Adult depression screening assessment Olivier Posey DO Work Phone: Start: 03-18-2024 Adult depression screening assessment Olivier Posey DO Work Phone: Start: 01-01-2024 Follow-up visit Follow-up OLIVIER POSEY Start: 01-01-2024 Adult depression screening assessment Olivier Posey DO Work Phone: Start: 11-23-2023 Adult depression screening assessment Olivier Posey DO Work Phone: Start: 10-24-2023 Adult depression screening assessment Olivier Posey DO Work Phone: Start: 09-21-2023 Adult depression screening assessment Olivier Posey DO Work Phone: History of tonsillectomy History of tonsillectomy and adenoidectomy Plan of Treatment Date Care Activity Detail Author Start: 12-31-2033 DTaP,Tdap and Td Vaccines (8 - Td or Tdap) DTaP,Tdap and Td Vaccines (8 - Td or Tdap) [facility] Start: 10-24-2025 Adult BMI Screening Adult BMI Screen ing [facility] Start: 10-24-2025 Tobacco Screening Tobacco Screening [facility] Start: 08-13-2025 Adult BMI Screening Adult BMI Screen ing [facility] Start: 08-13-2025 Tobacco Screening Tobacco Screening [facility] Start: 07-16-2025 Adult BMI Screening Adult BMI Screen ing [facility] Start: 07-16-2025 Tobacco Screening Tobacco Screening [facility] Start: 07-12-2025 Adult BMI Screening Adult BMI Screen ing [facility] Start: 07-12-2025 Tobacco Screening Tobacco Screening [facility] Start: 06-17-2025 Depression Screening Depression Scre ening [facility] Start: 03-18-2025 Adult BMI Screening Adult BMI Screen ing [facility] Start: 03-18-2025 Depression Screening Depression Scre ening [facility] Start: 03-18-2025 Tobacco Screening Tobacco Screening [facility] Start: 03-03-2025 Influenza vaccination P [facility] Start: 02-03-2025 End: 02-03-2025 Patient encounter procedure 02/03/2025 10:10 AM EDT Office Visit [facility] [address] [place] [id number] Mika Ma, DPM FACFAS [address] [facility] [place] [address] Arrived [facility] Comment on above: Arrived Start: 12-31-2024 Adult BMI Screening Adult BMI Screen ing [facility] Start: 12-31-2024 Depression Screening Depression Scre ening [facility] Start: 12-31-2024 Tobacco Screening Tobacco Screening [facility] Start: 11-22-2024 Adult BMI Screening Adult BMI Screen ing [facility] Start: 11-22-2024 Depression Screening Depression Scre ening [facility] Start: 11-22-2024 Tobacco Screening Tobacco Screening [facility] Start: 10-23-2024 Adult BMI Screening Adult BMI Screen ing [facility] Start: 10-23-2024 Depression Screening Depression Scre ening [facility] Start: 10-23-2024 Tobacco Screening Tobacco Screening [facility] Start: 09-20-2024 Adult BMI Screening Adult BMI Screen ing [facility] Start: 09-20-2024 Depression Screening Depression Scre ening [facility] Start: 09-20-2024 Tobacco Screening Tobacco Screening [facility] Start: 09-02-2024 End: 09-02-2024 Telemedicine consultation with patient 09/02/2024 4:15 PM EST Telemedicine [facility] Internal [facility] - Family Medicine [address] [place] [address] Olivier Posey, DO [address], [facility] [place] [address] [facility] - Family [facility] Start: 08-13-2024 End: 08-13-2024 Patient encounter procedure 08/13/2024 4:00 PM EST Office Visit [facility] [address] [place] [address] Olivier Posey DO [address] [place] [address] [facility] - Family [facility] Start: 07-16-2024 End: 07-16-2024 Patient encounter procedure 07/16/2024 2:45 PM EST Office Visit [facility] - Family [facility] [address] [place] [address] Olivier Posey DO [address], [facility] [place] [address] [facility] Family [facility] Start: 07-16-2024 End: 07-16-2025 XR Chest PA and Lateral [facility] Work Phone: Comment on above: Expected: 07/16/2024 , Expires: 07/16/2025 Start: 03-03-2024 Influenza vaccination Influenza Vacc ine [facility] Start: 02-18-2024 DTaP,Tdap and Td Vaccines (7 - Td or Tdap) DTaP,Tdap and Td Vaccines (7 - Td or Tdap) [facility] Comment on above: Postponed from 09/13 (Patient Refused) Start: 02-08-2024 Adult BMI Follow Up Plan Adult BMI Follow Up Plan [facility] Comment on above: Postponed from 12/05 (Not Indicated) Start: 12-26-2023 End: 12-26-2023 Patient encounter procedure 12/26/2023 1:30 PM EDT [facility] [address] [place] [address] Olivier Posey, DO [address] [place] [address] [facility] - [facility] Start: 11-21-2023 End: 11-21-2023 Patient encounter procedure 11/21/2023 2:15 PM EDT [facility] [address] [place] [address] Olivier Posey, DO [address], [place] [address] [facility] - [facility] Start: 10-24-2023 End: 10-24-2023 Patient encounter procedure 10/24/2023 1:30 PM EDT [facility] [address] [place] [address] Olivier Posey, DO [address] [place] [address] [facility] Start: 10-01-2023 Influenza vaccination Influenza Vacc ine [facility] Comment on above: Postponed from 03/03 (Patient Refused) Start: 03-03-2022 Influenza vaccination INFLUENZA (#1) [facility] Start: 09-25-2021 COVID-19 VACCINE (4 - Booster for Pfizer series) COVID-19 VACCINE (4 - Booster for Pfizer series) [facility] Start: 07-03-2021 DEPRESSION ASSESSMENT DEPRESSION ASS ESSMENT [facility] Start: 2020 Urine microalbumin profile DTAP,TDAP,TD (1 - Tdap) [facility] Start: 12-06-2019 Adult BMI Follow Up Plan Adult BMI Follow Up Plan [facility] Start: 12-06-2019 HEPATITIS C SCREENING HEPATITIS C SC REENING [facility] Start: 12-06-2019 HIV SCREENING HIV SCREENING [facility] Start: 12-06-2015 PEDS TO ADULT TRANSI TION ANNUAL ASSESSMENT PEDS TO ADULT TRANSITION ANNUAL ASSESSMENT [facility] Start: 2013 PEDS TO ADULT TRANSI TION INITIAL DISCUSSION PEDS TO ADULT TRANSITION INITIAL DISCUSSION [facility] Start: 2012 HPV VACCINE (1 - Mal e 2-dose series) HPV VACCINE (1 - Male 2-dose series) [facility] Start: 12-06-2011 MENINGOCOCCAL B: Consider based on risk (1 of 2 - Risk Bexsero 2-dose series) MENINGOCOCCAL B: Consider based on risk (1 of 2 - Risk Bexsero 2-dose series) [facility] Start: 2001 HEPATITIS B (1 of 3 - 3-dose series) HEPATITIS B (1 of 3 - 3-dose series) [facility] Immunizations Immunization Date Immunization Notes Care Provider Sarabjit mchugh 01-01-2024 tetanus toxoid, redu sivan diphtheria toxoid, and acellular pertussis vaccine, adsorbed Olivier Furbella DO Work Phone: [facility] 01-01-2024 Immunization, In Clinic,; Translations: [Drug or medicament (substance)] Olivier Furlong DO Work Phone: [facility] 07-07-2022 Influenza, injectabl e, Madin Janny Canine Kidney, preservative free, quadrivalent Olivier Furlong DO Work Phone: [facility] 07-07-2022 influenza virus vacc ine, unspecified formulation Olivier Furlong DO Work Phone: [facility] 05-27-2020 influenza, injectabl e, quadrivalent, preservative free Olivier Furlong DO Work Phone: [facility] 02-25-2019 meningococcal polysaccharide (groups A, C, Y and W-135) diphtheria toxoid conjugate vaccine (MCV4P) Olivier Furlong DO Work Phone: [facility] 02-06-2014 meningococcal polysaccharide (groups A, C, Y and W-135) diphtheria toxoid conjugate vaccine (MCV4P) Olivier Furlong DO Work Phone: [facility] 02-05-2013 human papilloma viru s vaccine, quadrivalent Olivier Furlong DO Work Phone: [facility] 09-13-2012 tetanus toxoid, redu sivan diphtheria toxoid, and acellular pertussis vaccine, adsorbed Olivier Furlong DO Work Phone: [facility] 05-27-2009 novel Influenza-H1N1 -09, live virus for nasal administration Olivier Furlong DO Work Phone: [facility] 04-22-2009 novel Influenza-H1N1 -09, live virus for nasal administration Olivier Furlong DO Work Phone: [facility] 02-26-2007 diphtheria, tetanus toxoids and acellular pertussis vaccine Olivier Furlong DO Work Phone: [facility] 02-26-2007 measles, mumps, rube lla, and varicella virus vaccine Olivier Furlong DO Work Phone: [facility] 02-26-2007 poliovirus vaccine, inactivated Olivier Furlong DO Work Phone: [facility] 02-23-2005 diphtheria, tetanus toxoids and acellular pertussis vaccine Olivier Furlong DO Work Phone: [facility] 02-23-2005 haemophilus influenz ae type b vaccine, PRP-T conjugate Olivier Furlong DO Work Phone: [facility] 02-23-2005 hepatitis B vaccine, pediatric or pediatric/adolescent dosage Olivier Furlong DO Work Phone: [facility] 02-23-2005 measles, mumps and rubella virus vaccine Olivier Furlong DO Work Phone: [facility] 02-23-2005 varicella virus vaccine Denn is Furlong DO Work Phone: [facility] 11-21-2002 diphtheria, tetanus toxoids and acellular pertussis vaccine, unspecified formulation Olivier Furlong DO Work Phone: [facility] 11-21-2002 poliovirus vaccine, unspecified formulation Olivier Furlong DO Work Phone: [facility] 04-17-2002 diphtheria, tetanus toxoids and acellular pertussis vaccine, unspecified formulation Olivier Furlong DO Work Phone: [facility] 04-17-2002 haemophilus influenz ae type b vaccine, conjugate unspecified formulation Olivier Furlong DO Work Phone: [facility] 04-17-2002 hepatitis B vaccine, pediatric or pediatric/adolescent dosage Olivier Furlong DO Work Phone: [facility] 04-17-2002 pneumococcal conjuga te vaccine, 7 valent Olivier Furlong DO Work Phone: [facility] 04-17-2002 poliovirus vaccine, unspecified formulation Olivier Furlong DO Work Phone: [facility] 02-14-2002 diphtheria, tetanus toxoids and acellular pertussis vaccine, unspecified formulation Olivier Furlong DO Work Phone: [facility] 02-14-2002 haemophilus influenz ae type b vaccine, conjugate unspecified formulation Olivier Furlong DO Work Phone: [facility] 02-14-2002 hepatitis B vaccine, pediatric or pediatric/adolescent dosage Olivier Furlong DO Work Phone: [facility] 02-14-2002 pneumococcal conjuga te vaccine, 7 valent Olivier Furlong DO Work Phone: [facility] 02-14-2002 poliovirus vaccine, unspecified formulation Olivier Furlong DO Work Phone: [facility] Payers Date Payer Category Payer Private Health Insurance [id number] 2018 Commercial Managed C are - PPO [employer] [id number] 2018 Unknown [id number] 2001 Unknown [id number]. 593 2001 Unknown [id number] [id number]. 593 2001 Unknown [id number] [id number]. 1286 2001 Unknown [id number] [id number]. 128 2001 Unknown [id number] [id number]. 128 2001 Unknown [id number] [id number]. 1286 2001 Unknown [id number] [id number]. 1285 2001 Unknown [id number] [id number]. 1286 2001 Unknown [id number] [id number]. 1285 2001 Unknown [id number] [id number]. 1286 2001 Unknown [id number] [id number]. 1286 2001 Unknown [id number] [id number]. 1286 2001 Unknown [id number] [id number]. 1286 2001 Unknown [id number] [id number]. 1286 2001 Unknown [id number] [id number]. 1259 1959 Unknown [id number] Social History Date Type Detail Facility Tobacco smoking stat [facility] Tobacco smoking consumption unknown [facility] Start: 2001 Sex Assigned At Not on file [facility] Start: 04-19-2022 End: 03-25-2025 Tobacco smoking status [facility] Never smoked tobacco [facility] Start: 04-19-2022 End: 02-03-2025 Tobacco use and exposure Smokeless tobacco non-user [facility] Start: 07-12-2024 End: 10-24-2024 Alcoholic beverage intake Current drinker of alcohol (finding) [facility] Start: 10-24-2023 End: 06-17-2024 History of Social function [facility] Start: 10-24-2023 End: 06-17-2024 [facility] Utilities [facility] [employer], or [employer] threatened to shut off services in your home in past 12Mo No [facility] Are you now , , , , never or living with a partner? Never [facility] How often to you hav e a drink containing alcohol? Monthly or less [facility] How many standard drinks containing alcohol do you have on a typical day? 1 or 2 [facility] How often do you hav e 6 or more drinks on 1 occasion? Never [facility] How hard is it for y ou to pay for the very basics like food, housing, medical care, and heating Not hard at all [facility] Do you feel stress - tense, restless, nervous, or anxious, or unable to sleep at night because your mind is troubled all the time - these days [OSQ] Not at all [facility] Start: 02-16-2023 Alcohol Comment on ocassion [facility] Start: 02-05-2015 End: 09-20-2018 Sex Male (finding) [facility] Start: 2001 Sex Assigned At Male [facility] Sexual Orientation [facility] Clinical Notes 06-25-2022 to 03-25-2025 Mika Ma DPM FACFAS - 02/03/2025 10:10 AM Ann Marie Hyatt APRN-PHYSIOTHERAPY AIDE - 10/24/2024 3:00 PM Oscar Posey, DO - 09/02/2024 4:15 PM Fred Posey, DO - 08/13/2024 4:00 PM EST Note Date & Type Note Facility 03-25-2025 Hospital Discharge instructions Patient Education 03/25/2025 11:48:04 Nausea and Vomiting, Adult, Cplb-fv-[id number] Nausea and Vomiting, Adult Nausea is feeling that you have an upset stomach and that you are about to vomit. Vomiting is when food in your stomach forcefully comes out of your mouth. Vomiting can make you feel weak. If you vomit, or if you are not able to drink enough fluids, you may not have enough water in your body (get dehydrated). If you do not have enough water in your body, you may: Feel tired. Feel thirsty. Have a dry mouth. Have cracked lips. Pee (urinate) less often. Older adults and people with other diseases or a weak body defense system (immune system) are at higher risk for not having enough water in the body. If you feel like you may vomit or you vomit, it is important to follow instructions from your doctor about how to take care of yourself. Follow these instructions at home: Watch your symptoms for any changes. Tell your doctor about them. Eating and drinking Take an ORS (oral rehydration solution). This is a drink that is sold at pharmacies and stores. Drink clear fluids in small amounts as you are able, such as: ?Water. ?Ice chips. ?Fruit juice that has water added (diluted fruit juice). ?Low-calorie sports drinks. Eat bland, jqcq-hs-bevhqq foods in small amounts as you are able, such as: ?Bananas. ?Applesauce. ?Rice. ?Low-fat (lean) meats. ?[place]. ?Crackers. Avoid drinking fluids that have a lot of sugar or caffeine in them. This includes energy drinks, sports drinks, and soda. Avoid alcohol. Avoid spicy or fatty foods. General instructions Take jhui-aul-mtojdoq and prescription medicines only as told by your doctor. Drink enough fluid to keep your pee (urine) pale yellow. Wash your hands often with soap and water for at least 20 seconds. If you cannot use soap and water, use hand cylinder honer. Make sure that everyone in your home washes their hands well and often. Rest at home until you feel better. Watch your condition for any changes. Take slow and deep breaths when you feel like you may vomit. Keep all follow-up visits. Contact a doctor if: Your symptoms get worse. You have new symptoms. You have a fever. You cannot drink fluids without vomiting. You feel like you may vomit for more than 2 days. You feel light-headed or dizzy. You have a headache. You have muscle cramps. You have a rash. You have pain while peeing. Get help right away if: You have pain in your chest, neck, arm, or jaw. You feel very weak or you faint. You vomit again and again. You have vomit that is bright red or looks like black coffee grounds. You have bloody or black poop (stools) or poop that looks like tar. You have a very bad headache, a stiff neck, or both. You have very bad pain, cramping, or bloating in your belly (abdomen). You have trouble breathing. You are breathing very quickly. Your heart is beating very quickly. Your skin feels cold and clammy. You feel confused. You have signs of losing too much water in your body, such as: ?Dark pee, very little pee, or no pee. ?Cracked lips. ?Dry mouth. ?Sunken eyes. ?Sleepiness. ?Weakness. These symptoms may be an emergency. Get help right away. Call 911. Do not wait to see if the symptoms will go away. Do not drive yourself to the hospital. Summary Nausea is feeling that you have an upset stomach and that you are about to vomit. Vomiting is when food in your stomach comes out of your mouth. Follow instructions from your doctor about eating and drinking. Take fpbk-ucl-dyvjkld and prescription medicines only as told by your doctor. Contact your doctor if your symptoms get worse or you have new symptoms. Keep all follow-up visits. This information is not intended to replace advice given to you by your health care provider. Make sure you discuss any questions you have with your health care provider. Document Revised: 12/24/2021 Document Reviewed: 12/24/2021 [employer] Patient Education 2023 [employer]. 03/25/2025 11:47:57 Food Choices to Help Relieve Diarrhea, Adult Food Choices to Help Relieve Diarrhea, Adult Diarrhea can make you feel weak and cause you to become dehydrated. Dehydration is a condition in which there is not enough water or other fluids in the body. It is important to choose the right foods and drinks to: Relieve diarrhea. Replace lost fluids and nutrients. Prevent dehydration. What are tips for following this plan? Relieving diarrhea Avoid foods that make your diarrhea worse. These may include: ?Foods and drinks that are sweetened with high-fructose corn syrup, honey, or sweeteners such as xylitol, sorbitol, and mannitol. Check food labels for these ingredients. ?Fried, greasy, or spicy foods. ?Raw fruits and vegetables. Eat foods that are rich in probiotics. These include foods such as yogurt and fermented milk products. Probiotics can help increase healthy bacteria in your stomach and intestines (gastrointestinal or GI tract). This may help digestion and stop diarrhea. If you have lactose intolerance, avoid dairy products. These may make your diarrhea worse. Take medicine to help stop diarrhea only as told by your health care provider. Replacing nutrients Eat bland, jovm-ua-dalfkx foods in small amounts as you are able, until your diarrhea starts to get better. These foods include bananas, applesauce, rice, toast, and crackers. Over time, add nutrient-rich foods as your body tolerates them or as told by your health care provider. These include: ?Well-cooked protein foods, such as eggs, lean meats like fish or chicken without skin, and tofu. ?Peeled, seeded, and soft-cooked fruits and vegetables. ?Low-fat dairy products. ?Whole grains. Take vitamin and mineral supplements as told by your health care provider. Preventing dehydration Start by sipping water or a solution to prevent dehydration (oral rehydration solution, or ORS). This is a drink that helps replace fluids and minerals your body has lost. You can buy an ORS at pharmacies and retail stores. Try to drink at least 8 10 cups (2,000 2,500 mL) of fluid each day to help replace lost fluids. If your urine is pale yellow, you are getting enough fluids. You may drink other liquids in addition to water, such as fruit juice that you have added water to (diluted fruit juice) or low-calorie sports drinks, as tolerated or as told by your health care provider. Avoid drinks with caffeine, such as coffee, tea, or soft drinks. Avoid alcohol. This information is not intended to replace advice given to you by your health care provider. Make sure you discuss any questions you have with your health care provider. Document Revised: 12/06/2022 Document Reviewed: 12/06/2022 [employer] Patient Education 2023 [employer]. 03/25/2025 11:47:54 Diarrhea, Adult, Jzwq-em-Axps Diarrhea, Adult Diarrhea is when you pass loose and sometimes watery poop (stool) often. Diarrhea can make you feel weak and cause you to lose water in your body (get dehydrated). Losing water in your body can cause you to: Feel tired and thirsty. Have a dry mouth. Go pee (urinate) less often. Diarrhea often lasts 2 3 days. It can last longer if it is a sign of something more serious. Be sure to treat your diarrhea as told by your doctor. Follow these instructions at home: Eating and drinking Follow these instructions as told by your doctor: Take an ORS (oral rehydration solution). This is a drink that helps you replace fluids and minerals your body lost. It is sold at pharmacies and stores. Drink enough fluid to keep your pee (urine) pale yellow. ?Drink fluids such as: ?Water. You can also get fluids by sucking on ice chips. ?Diluted fruit juice. ?Low-calorie sports drinks. ?Milk. ?Avoid drinking fluids that have a lot of sugar or caffeine in them. These include soda, energy drinks, and regular sports drinks. ?Avoid alcohol. Eat bland, ovko-wf-wydett foods in small amounts as you are able. These foods include: ?Bananas. ?Applesauce. ?Rice. ?Low-fat (lean) meats. ?[place]. ?Crackers. Avoid spicy or fatty foods. Medicines Take xooj-rnx-hzbcsmf and prescription medicines only as told by your doctor. If you were prescribed antibiotics, take them as told by your doctor. Do not stop taking them even if you start to feel better. General instructions Wash your hands often using soap and water for 20 seconds. If soap and water are not available, use hand cylinder honer. Others in your home should wash their hands as well. Wash your hands: ?After using the toilet or changing a diaper. ?Before preparing, cooking, or serving food. ?While caring for a sick person. ?While visiting someone in a hospital. Rest at home while you get better. Take a warm bath to help with any burning or pain from having diarrhea. Watch your condition for any changes. Contact a doctor if: You have a fever. Your diarrhea gets worse. You have new symptoms. You vomit every time you eat or drink. You feel light-headed, dizzy, or you have a headache. You have muscle cramps. You have signs of losing too much water in your body, such as: ?Dark pee, very little pee, or no pee. ?Cracked lips. ?Dry mouth. ?Sunken eyes. ?Sleepiness. ?Weakness. You have bloody or black poop or poop that looks like tar. You have very bad pain, cramping, or bloating in your belly (abdomen). Your skin feels cold and clammy. You feel confused. Get help right away if: You have chest pain. Your heart is beating very quickly. You have trouble breathing or you are breathing very quickly. You feel very weak or you faint. These symptoms may be an emergency. Get help right away. Call 911. Do not wait to see if the symptoms will go away. Do not drive yourself to the hospital. This information is not intended to replace advice given to you by your health care provider. Make sure you discuss any questions you have with your health care provider. Document Revised: 12/06/2022 Document Reviewed: 12/06/2022 [employer] Patient Education 2023 [employer]. 03/25/2025 11:47:49 Fatigue Fatigue If you have fatigue, you feel tired all the time and have a lack of energy or a lack of motivation. Fatigue may make it difficult to start or complete tasks because of exhaustion. Occasional or mild fatigue is often a normal response to activity or life. However, long-term (chronic) or extreme fatigue may be a symptom of a medical condition such as: Depression. Not having enough red blood cells or hemoglobin in the blood (anemia). A problem with a small gland located in the lower front part of the neck (thyroid disorder). Rheumatologic conditions. These are problems related to the body's defense system (immune system). Infections, especially certain viral infections. Fatigue can also lead to negative health outcomes over time. Follow these instructions at home: Medicines Take sjop-zbc-zkbxnmq and prescription medicines only as told by your health care provider. Take a multivitamin if told by your health care provider. Do not use herbal or dietary supplements unless they are approved by your health care provider. Eating and drinking Avoid heavy meals in the evening. Eat a well-balanced diet, which includes lean proteins, whole grains, plenty of fruits and vegetables, and low-fat dairy products. Avoid eating or drinking too many products with caffeine in them. Avoid alcohol. Drink enough fluid to keep your urine pale yellow. Activity Exercise regularly, as told by your health care provider. Use or practice techniques to help you relax, such as yoga, viral chi, meditation, or massage therapy. Lifestyle Change situations that cause you stress. Try to keep your work and personal schedules in balance. Do not use recreational or illegal drugs. General instructions Monitor your fatigue for any changes. Go to bed and get up at the same time every day. Avoid fatigue by pacing yourself during the day and getting enough sleep at night. Maintain a healthy weight. Contact a health care provider if: Your fatigue does not get better. You have a fever. You suddenly lose or gain weight. You have headaches. You have trouble falling asleep or sleeping through the night. You feel angry, guilty, anxious, or sad. You have swelling in your legs or another part of your body. Get help right away if: You feel confused, feel like you might faint, or faint. Your vision is blurry or you have a severe headache. You have severe pain in your abdomen, your back, or the area between your waist and hips (pelvis). You have chest pain, shortness of breath, or an irregular or fast heartbeat. You are unable to urinate, or you urinate less than normal. You have abnormal bleeding from the rectum, nose, lungs, nipples, or, if you are female, the vagina. You vomit blood. You have thoughts about hurting yourself or others. These symptoms may be an emergency. Get help right away. Call 911. Do not wait to see if the symptoms will go away. Do not drive yourself to the hospital. Get help right away if you feel like you may hurt yourself or others, or have thoughts about taking your own life. Go to your nearest emergency room or: Call 911. Call the National Suicide Prevention Lifeline at or 035. This is open 24 hours a day. Text the Crisis Text Line at 106906. Summary If you have fatigue, you feel tired all the time and have a lack of energy or a lack of motivation. Fatigue may make it difficult to start or complete tasks because of exhaustion. Long-term (chronic) or extreme fatigue may be a symptom of a medical condition. Exercise regularly, as told by your health care provider. Change situations that cause you stress. Try to keep your work and personal schedules in balance. This information is not intended to replace advice given to you by your health care provider. Make sure you discuss any questions you have with your health care provider. Document Revised: 04/11/2022 Document Reviewed: 04/11/2022 [employer] Patient Education 2023 [employer]. Follow Up Care 03/25/2025 10:45:56 With:OLIVIER POSEY DO Address: When: Unknown [facility] 02-03-2025 History of Present illness Narrative Images from the original note were not included. Patient: Robby Celis : 2000 PCP: Olivier Posey MD SUBJECTIVE This is a 24 y.o. male presents today with a chief complaint of a painful ingrown toenail with associated soft tissue abscess left foot. The state the pain has been present for several weeks and has progressively worsened. They have attempted trimming the nail back to no avail. They have noticed erythema and drainage coming from the affected border of the nail. They have attempted soaking the nail and topical antibiotics to no avail. The patient rates the pain a scale from 1-10 as a 8 with 10 being the worst pain of their lives. Allergies: Allergies Allergen Reactions Franklin Anaphylaxis and Unknown Codeine Unknown Cephalosporins Other, Itching and Rash Past Medical History: Active Ambulatory Problems Diagnosis Date Noted No Active Ambulatory Problems Resolved Ambulatory Problems Diagnosis Date Noted No Resolved Ambulatory Problems No Additional Past Medical History Medications: No current outpatient medications on file. Review of systems: Constitutional: Denies fever, chills, nausea, vomiting GI: Denies abdominal pain, cramping, loose stool, gastric ulcers Musculoskeletal: Denies low back pain, knee pain, systemic arthritis Neurologic: Denies burning, tingling, transient paralysis OBJECTIVE Physical Examination: DERM: Positive hair growth to b/l feet with good skin turgor noted. Negative openings in skin. The left great toe is incurvated and painful at the nail border. There is significant erythema and drainage with abscess formation noted. Pain on direct palpation of the incurvated border. Localized erythema circumferentially around the digit. There is no ascending cellulitis or lymphangitis noted. VASC: DP /PT were palpable bilateral. Capillary refill time < 3 seconds Digits 1-5 bilateral NEURO: [place] 5.07 monofilament was intact B/L. Vibratory sensation was intact B/L Musculoskeletal: Muscle strength was +5 over 5 all intrinsic and extrinsic muscles tested. ASSESSMENT 1. Abscess, toe, left 2. Onychocryptosis 3. Pain in left toe(s) PLAN Recommended incision and drainage of the infection of the digit. Consent forms were signed for the procedure today. The digit was anesthetized with 3 cc of 2% lidocaine plain. The digit was prepped and draped in the usual sterile manner. The offending nail border was freed proximally and at the nail bed. The nail was then split and removed in toto. The abscess was drained and copiously lavaged with normal sterile saline. Dressings consisted of Silvadene 4x4s and Coban. The patient was instructed to change the dressing daily. Started the patient on doxycycline 100 mg b.i.d. for 10 days secondary to the concern of MRSA thank STEPHANIE Denton documented in this encounter [facility] 10-24-2024 History of Present illness Narrative [address] [place] [address] Patient: Robby Celis Date of : 2000 Encounter Date: 10/24/2024 History of Present Illness: The patient is a 23 y.o. male, an established patient, and is here for Chief Complaint Patient presents with Diarrhea X 2 months . HPI Patient here complaining of loose stools for the last 2 months. He is having sometimes 6-7 stools that are a 6 Or a 5 On the [place] stool scale. Patient denies abdominal pain, cramping, weight loss, urgency, incontinence, nausea or dyspepsia symptoms with the stools. He stopped phentermine about 3 weeks ago and since he was on the phentermine he focused on good diet changes such as less processed food and less fast food. He does notice certain foods such as cheese caused him to have more frequent stools. Patient denies any black or dark stools or blood in stool. His mom had encouraged him to schedule his appointment today. He started taking his creatine again daily and he is unsure if this has affected his stool, but the loose stools have been going on before this was restarted Problem List Items Addressed This Visit None Visit Diagnoses Loose stools - Primary Ingrown left big toenail Relevant Orders Ambulatory referral to Podiatry Past Medical, Family, and Social History Update: The following portions of the patient's history were reviewed and updated as appropriate: allergies, current medications, past family history, past medical history, past social history, past surgical history and problem list. Past Medical History: Diagnosis Date Anxiety Back pain Migraine Sprain of right ankle, sequela Sprain of right knee/leg, sequela Past Surgical History: Procedure Laterality Date ADENOIDECTOMY FOOT FRACTURE SURGERY Left TONSILLECTOMY Current Outpatient Medications Medication Sig Dispense Refill EPINEPHrine (EPIPEN) 0.3 mg/0.3 mL auto-injector Inject 0.3 mL (0.3 mg total) into the appropriate muscle as needed (allergic reaction to walnuts). 1 each 0 phentermine 37.5 MG capsule Take 1 capsule (37.5 mg total) by mouth every morning before breakfast. (Patient not taking: Reported on 10/24/2024) 30 capsule 0 No current facility-administered medications for this visit. (All medications reviewed and updated by provider since last office visit or hospitalization) Allergies: Franklin and Cephalosporins Tobacco History: Social History Tobacco Use Smoking Status Never Smokeless Tobacco Never (If patient a smoker, smoking cessation counseling offered) Social History: Social History Substance and Sexual Activity Alcohol Use Yes Comment: on ocassion Review of Systems: Review of Systems Constitutional: Negative for activity change, appetite change, fatigue, fever and unexpected weight change. HENT: Negative. Respiratory: Negative. Cardiovascular: Negative. Gastrointestinal: Positive for diarrhea. Negative for abdominal distention, abdominal pain, anal bleeding, blood in stool, constipation, nausea, rectal pain and vomiting. Musculoskeletal: Negative. Neurological: Negative. Psychiatric/Behavioral: Negative. Physical Exam: BP 100/60 (BP Site: Left Arm, BP Postition: Sitting) Pulse 90 Temp 36.8 C (98.3 F) (Oral) Resp 18 Ht 177.8 cm (5' 10 ) Wt 107.2 kg (236 lb 6.4 oz) SpO2 98% BMI 33.92 kg/m Physical Exam Vitals reviewed. Constitutional: General: He is not in acute distress. Appearance: Normal appearance. He is well-developed. He is obese. HENT: Head: Normocephalic. Eyes: Pupils: Pupils are equal, round, and reactive to light. Cardiovascular: Rate and Rhythm: Normal rate and regular rhythm. Heart sounds: Normal heart sounds. No murmur heard. Pulmonary: Effort: Pulmonary effort is normal. Breath sounds: Normal breath sounds. No wheezing. Abdominal: General: Bowel sounds are normal. Palpations: Abdomen is soft. There is no mass. Tenderness: There is no abdominal tenderness. Feet: Left foot: Toenail Condition: Left toenails are abnormally thick and ingrown. Lymphadenopathy: Cervical: No cervical adenopathy. Skin: General: Skin is warm and dry. Capillary Refill: Capillary refill takes less than 2 seconds. Findings: No rash. Neurological: General: No focal deficit present. Mental Status: He is alert and oriented to person, place, and time. Cranial Nerves: No cranial nerve deficit. Coordination: Coordination normal. Psychiatric: Mood and Affect: Mood normal. Behavior: Behavior normal. Assessment and Plan: Robby was seen today for diarrhea. Diagnoses and all orders for this visit: Loose stools Ingrown left big toenail - Ambulatory referral to Podiatry; Future Follow-up: It was recommended that patient increase fiber in his diet. He may do this with food and/or use Metamucil 1 to 3 times a day and adjust as needed. The loose stools do not appear to be pathologic or are accompanied by worrisome symptoms such as weight loss or abdominal pain or blood in stool. Bulking the stool with fiber may decrease the frequency and add some consistency. Patient has a noninfected ingrown toenail to his left great toe that may need to be removed by Podiatry as conservative measures such as Epson salt soaks and clipping are not helping. Referral to podiatry was made. He should continue the conservative measures as listed. Patient should follow up in the office if increasing his fiber and using Metamucil does not help to bulk his stool or less in the frequency. YOVANI FLORES APRN-CNP 10/25/24 1239 documented in this encounter [facility] 09-02-2024 History of Present illness Narrative Subjective Patient ID: Robby Celis is a 23 y.o. male. Robby agreed to a telehealth visit with limitations in ability do a physical exam. He is taking the phentermine. He is not having any side effects. Continues to exercise vigorously by working out in playing soccer. He is also watching his portion control. He has lost 9 more lb. He is very happy with the results. The following portions of the patient's history were reviewed and updated as appropriate: allergies, current medications, past family history, past medical history, past social history, past surgical history, problem list, and medication reconciliation was completed including current medication and post discharge medication. Review of Systems Objective Physical Exam Vitals reviewed. Exam conducted with a boat diesel motor mechanic present (Elpidio Abdalla MS3). Constitutional: General: He is not in acute distress. Appearance: He is obese. He is not ill-appearing. HENT: Head: Normocephalic. Pulmonary: Effort: Pulmonary effort is normal. No respiratory distress. Neurological: General: No focal deficit present. Mental Status: He is alert and oriented to person, place, and time. Psychiatric: Attention and Perception: Attention normal. Mood and Affect: Mood and affect normal. Speech: Speech normal. Behavior: Behavior normal. Behavior is cooperative. Thought Content: Thought content normal. Cognition and Memory: Cognition normal. Judgment: Judgment normal. Assessment/Plan Diagnoses and all orders for this visit: Class 1 obesity due to excess calories without serious comorbidity with body mass index (BMI) of 32.0 to 32.9 in adult - phentermine 37.5 MG capsule; Take 1 capsule (37.5 mg total) by mouth every morning before breakfast. Robby continues to lose weight with phentermine. He has been doing great. He has changed his eating and exercise habits for the better. We can continue down to less than 30%. We will recheck him in the office in another month see how he is doing. documented in this encounter [facility] 08-13-2024 History of Present illness Narrative Subjective Patient ID: Robby Celis is a 23 y.o. male. Robby presents for a weight recheck. He is losing weight. He is working out and eating less. He is taking the medication. He does not have any side effects. He is very happy with the weight loss. The following portions of the patient's history were reviewed and updated as appropriate: allergies, current medications, past family history, past medical history, past social history, past surgical history, problem list, and medication reconciliation was completed including current medication and post discharge medication. Review of Systems Objective Physical Exam Vitals reviewed. Exam conducted with a boat diesel motor mechanic present (Elpidio Abdalla MS3). Constitutional: General: He is not in acute distress. Appearance: He is obese. HENT: Head: Normocephalic. Cardiovascular: Rate and Rhythm: Normal rate and regular rhythm. Pulses: Normal pulses. Heart sounds: Normal heart sounds. No murmur heard. Pulmonary: Effort: Pulmonary effort is normal. No respiratory distress. Breath sounds: Normal breath sounds. No wheezing, rhonchi or rales. Musculoskeletal: Cervical back: Neck supple. Neurological: General: No focal deficit present. Mental Status: He is alert and oriented to person, place, and time. Psychiatric: Attention and Perception: Attention normal. Mood and Affect: Mood and affect normal. Speech: Speech normal. Behavior: Behavior normal. Cognition and Memory: Cognition normal. Judgment: Judgment normal. Assessment/Plan Robby was seen today for weight check. Diagnoses and all orders for this visit: Class 1 obesity due to excess calories without serious comorbidity with body mass index (BMI) of 34.0 to 34.9 in adult He is obese. He is using high risk medication and losing weight. He was congratulated on his weight loss. He is making positive changes in his life. He is eating healthier and is incorporating exercise into his regimen. Continue phentermine. documented in this encounter [facility] 08-06-2024 Miscellaneous Notes You did not send in from the last time he was here 07/16 documented in this encounter [facility] 08-06-2024 Telephone encounter Note You did not send in from the last time he was here 07/16 [facility] 07-16-2024 History of Present illness Narrative Subjective Patient ID: Robby Celis is a 23 y.o. male. Robby presents for a recheck of his weight and pneumonia. He took all of his antibiotic. He does feel better but is still coughing. He is sleeping okay. His appetite is normal. He is reducing his portions. He is working out with lifting and elliptical. He works out 5-6 days/week for about an hour. He is taking the phentermine and not having any side effects. Is helping to curb his appetite. The following portions of the patient's history were reviewed and updated as appropriate: allergies, current medications, past family history, past medical history, past social history, past surgical history, problem list, and medication reconciliation was completed including current medication and post discharge medication. Review of Systems Objective Physical Exam Vitals reviewed. Exam conducted with a boat diesel motor mechanic present (Bridget Judge MS 3). Constitutional: General: He is not in acute distress. Appearance: He is obese. He is not ill-appearing, toxic-appearing or diaphoretic. Comments: Coughing HENT: Head: Normocephalic and atraumatic. Eyes: Extraocular Movements: Extraocular movements intact. Conjunctiva/sclera: Conjunctivae normal. Cardiovascular: Rate and Rhythm: Normal rate and regular rhythm. Heart sounds: Normal heart sounds. No murmur heard. Pulmonary: Effort: Pulmonary effort is normal. No respiratory distress. Breath sounds: Rales present. No wheezing or rhonchi. Musculoskeletal: Cervical back: Neck supple. Lymphadenopathy: Cervical: No cervical adenopathy. Skin: Coloration: Skin is not cyanotic. Neurological: General: No focal deficit present. Mental Status: He is alert and oriented to person, place, and time. Psychiatric: Attention and Perception: Attention normal. Mood and Affect: Mood and affect normal. Speech: Speech normal. Behavior: Behavior normal. Behavior is cooperative. Thought Content: Thought content normal. Cognition and Memory: Cognition normal. Judgment: Judgment normal. Assessment/Plan Robby was seen today for weight check. Diagnoses and all orders for this visit: Class 2 obesity due to excess calories without serious comorbidity with body mass index (BMI) of 36.0 to 36.9 in adult He is using phentermine with benefit. He lost 14 lb in the 1st month. He was congratulated on his weight loss and encouraged to continue. He is made positive changes in his diet and exercise habits. The OARRS/MAPPS database was reviewed today and found to be appropriate. No indication of medication diversion, or non compliance. Pneumonia of left lower lobe due to infectious organism - X-ray chest 2 views; Future He has completed the antibiotic but still has rales in his left base. I am going to check a chest x-ray. May need further evaluation and/or antibiotics. documented in this encounter [facility] 07-12-2024 History of Present illness Narrative Subjective Patient ID: Robby Celis is a 23 y.o. male. Symptoms started 4 days ago. He has sinus congestion, drainage, cough and occasional shortness a breath. Sister sick for 2 weeks around / Took uncle to hospital earlier this week which may have been exposed NSAIDs, tylenol, recolla cough drops, Svetlana-seltzer cough suppressant tablet that has worked really well Cough This is a new problem. Episode onset: 4 days ago. The problem has been unchanged. The problem occurs constantly. The cough is Productive of sputum (clear). Associated symptoms include chills, headaches, myalgias, postnasal drip, rhinorrhea, a sore throat, shortness of breath and wheezing. Pertinent negatives include no chest pain, ear congestion, ear pain, fever, heartburn, hemoptysis, nasal congestion, rash, sweats or weight loss. The symptoms are aggravated by cold air, exercise and lying down (talking). He has tried OTC cough suppressant for the symptoms. The treatment provided moderate (has helped the pain with cought, but not the frequency) relief. There is no history of asthma. Sore Throat This is a new problem. The current episode started yesterday. The problem has been unchanged. Neither side of throat is experiencing more pain than the other. There has been no fever. Associated symptoms include coughing, headaches and shortness of breath. Pertinent negatives include no ear pain. Associated symptoms comments: Got close to vomiting yesterday due to coughing. He has tried NSAIDs and acetaminophen for the symptoms. The treatment provided moderate relief. The following portions of the patient's history were reviewed and updated as appropriate: allergies, current medications, past family history, past medical history, past social history, past surgical history, problem list, and medication reconciliation was completed including current medication and post discharge medication. Review of Systems Constitutional: Positive for chills. Negative for fever and weight loss. HENT: Positive for postnasal drip, rhinorrhea and sore throat. Negative for ear pain. Respiratory: Positive for cough, shortness of breath and wheezing. Negative for hemoptysis. Cardiovascular: Negative for chest pain. Gastrointestinal: Negative for heartburn. Musculoskeletal: Positive for myalgias. Skin: Negative for rash. Neurological: Positive for headaches. Objective Physical Exam Vitals reviewed. Exam conducted with a boat diesel motor mechanic present (Bridget Siddiquiating MS 3). Constitutional: General: He is not in acute distress. Appearance: He is obese. He is ill-appearing (Mildly). He is not toxic-appearing or diaphoretic. Comments: Coughing and wearing mask HENT: Head: Normocephalic and atraumatic. Eyes: Extraocular Movements: Extraocular movements intact. Conjunctiva/sclera: Conjunctivae normal. Cardiovascular: Rate and Rhythm: Normal rate and regular rhythm. Heart sounds: Normal heart sounds. No murmur heard. Pulmonary: Effort: Pulmonary effort is normal. No respiratory distress. Breath sounds: Rales present. No wheezing or rhonchi. Musculoskeletal: Cervical back: Neck supple. Lymphadenopathy: Cervical: No cervical adenopathy. Skin: Coloration: Skin is not cyanotic. Neurological: General: No focal deficit present. Mental Status: He is alert and oriented to person, place, and time. Psychiatric: Attention and Perception: Attention normal. Mood and Affect: Mood and affect normal. Speech: Speech normal. Behavior: Behavior normal. Behavior is cooperative. Thought Content: Thought content normal. Cognition and Memory: Cognition normal. Judgment: Judgment normal. Assessment/Plan Robby was seen today for cough and sore throat. Diagnoses and all orders for this visit: Pneumonia of left lower lobe due to infectious organism - azithromycin (ZITHROMAX) 250 mg tablet; Take 2 tablets the first day, then 1 tablet daily for 4 days. Seems to have a pneumonia clinically. Likely community-acquired. Will treat with Zithromax. Continue ysno-gen-iutxsci cough suppressants as they are working well. Go to the ER if worse with shortness a breath or new symptoms arises Upper respiratory tract infection, unspecified type - POCT Influenza A/Influenza B/SARS-COV-2 Veritor All were negative for flu and COVID documented in this encounter [facility] 03-18-2024 History of Present illness Narrative Subjective Patient ID: Robby Celis is a 23 y.o. male. Robby presents for a lump on his left ankle. He just noticed it today. He has a history of a fractured foot-Viveros fracture. He had to have surgery on it 3 years ago. It does not hurt. The following portions of the patient's history were reviewed and updated as appropriate: allergies, current medications, past family history, past medical history, past social history, past surgical history, problem list, and medication reconciliation was completed including current medication and post discharge medication. Review of Systems Constitutional: Negative. Objective Physical Exam Vitals reviewed. Constitutional: General: He is not in acute distress. Appearance: He is obese. He is not ill-appearing. HENT: Head: Normocephalic. Cardiovascular: Pulses: Normal pulses. Musculoskeletal: General: Swelling present. No tenderness, deformity or signs of injury. Right lower leg: No edema. Left lower leg: No edema. Left ankle: No ecchymosis or lacerations. No tenderness. Normal range of motion. Anterior drawer test negative. Normal pulse. Left Achilles Tendon: No tenderness. Soriano's test negative. Comments: Cystic lesion just medial to lateral malleolus; soft, well-circumscribed with smooth borders. It is separate from the bone Skin: General: Skin is warm. Capillary Refill: Capillary refill takes less than 2 seconds. Comments: Skin over lesion is intact, normal color no rashes Neurological: General: No focal deficit present. Mental Status: He is alert. Gait: Gait is intact. Gait normal. Psychiatric: Mood and Affect: Mood normal. Behavior: Behavior normal. Thought Content: Thought content normal. Judgment: Judgment normal. Assessment/Plan Robby was seen today for mass. Diagnoses and all orders for this visit: Mass of soft tissue of ankle Lesion appears to be benign ganglion cyst. He is asymptomatic otherwise. Monitor for new symptoms or changes. Can check an ultrasound if it enlarges documented in this encounter [facility] 01-01-2024 History of Present illness Narrative Images from the original note were not included. Subjective Patient ID: Robby Celis is a 23 y.o. male. Robby presents for an injury at home. He was tawny and was in a harness and slipped and fell off the roof and it caught him but he hit against the house. He is still having right wrist pain. He has a abrasions on his left hand and right hand as well as a large abrasion along the right side of his chest. He thinks he might have hit the back of his hand on a nail gun. He also has a fairly large bruise on right side of his chest. He wonders if he tore his pectoralis muscle. He does have pain with movement of his right hand and wrist. The following portions of the patient's history were reviewed and updated as appropriate: allergies, current medications, past family history, past medical history, past social history, past surgical history, problem list, and medication reconciliation was completed including current medication and post discharge medication. Review of Systems Objective Physical Exam Exam conducted with a boat diesel motor mechanic present (David Weiner MS III). Constitutional: General: He is not in acute distress. Appearance: He is obese. HENT: Head: Normocephalic and atraumatic. Cardiovascular: Rate and Rhythm: Normal rate and regular rhythm. Pulses: Normal pulses. Heart sounds: Normal heart sounds. No murmur heard. Pulmonary: Effort: Pulmonary effort is normal. No respiratory distress. Breath sounds: Normal breath sounds. Musculoskeletal: Arms: Cervical back: Neck supple. Skin: Findings: Lesion (Multiple abrasions on the dorsum of right wrist, and a linear abrasion across the back of his left hand; significant linear abrasion noted a long right parasternal area with a moderate sized bruise and possible small hematoma) present. Neurological: General: No focal deficit present. Mental Status: He is alert and oriented to person, place, and time. Psychiatric: Attention and Perception: Attention normal. Mood and Affect: Mood and affect normal. Speech: Speech normal. Behavior: Behavior normal. Thought Content: Thought content normal. Judgment: Judgment normal. Assessment/Plan Robby was seen today for fall and follow-up. Diagnoses and all orders for this visit: Multiple abrasions Should heal on its own. Tdap given. Class 2 obesity due to excess calories without serious comorbidity with body mass index (BMI) of 37.0 to 37.9 in adult He is obese. He would benefit from wt loss. He failed phentermine. Contusion of right wrist, subsequent encounter X-ray discussed-negative. Should heal on its own. Call if no better or worse. Other orders - Tdap vaccine greater than or equal to 7yo IM documented in this encounter [facility] 11-23-2023 History of Present illness Narrative Subjective Patient ID: Robby Celis is a 22 y.o. male. Sherif presents today for a weight recheck. He is taking phentermine with benefit. He has not having any side effects. He is incorporated more exercise into his weekly routine. He is playing pickleball for an hour and a half 3-4 days a week. The following portions of the patient's history were reviewed and updated as appropriate: allergies, current medications, past family history, past medical history, past social history, past surgical history, problem list, and medication reconciliation was completed including current medication and post discharge medication. Review of Systems Constitutional: Positive for activity change and appetite change. Respiratory: Negative. Cardiovascular: Negative. Objective Physical Exam Exam conducted with a boat diesel motor mechanic present (Bobby Barrios MS IV). Constitutional: General: He is not in acute distress. Appearance: He is obese. HENT: Head: Normocephalic. Cardiovascular: Rate and Rhythm: Normal rate and regular rhythm. Pulses: Normal pulses. Heart sounds: Normal heart sounds. No murmur heard. Pulmonary: Effort: Pulmonary effort is normal. No respiratory distress. Breath sounds: Normal breath sounds. No wheezing, rhonchi or rales. Musculoskeletal: Cervical back: Neck supple. Right lower leg: No edema. Left lower leg: No edema. Lymphadenopathy: Cervical: No cervical adenopathy. Neurological: General: No focal deficit present. Mental Status: He is alert and oriented to person, place, and time. Psychiatric: Mood and Affect: Mood normal. Behavior: Behavior normal. Thought Content: Thought content normal. Judgment: Judgment normal. Assessment/Plan Robby was seen today for weight check. Diagnoses and all orders for this visit: Class 1 obesity due to excess calories without serious comorbidity with body mass index (BMI) of 33.0 to 33.9 in adult - phentermine 37.5 MG capsule; Take 1 capsule (37.5 mg total) by mouth every morning before breakfast. We will renew phentermine for another month. He is losing weight. He is deriving benefit with a high risk medication. He was congratulated on his weight loss and encouraged to continue with his healthy habits. The OARRS/MAPPS database was reviewed today and found to be appropriate. No indication of medication diversion, or non compliance. documented in this encounter [facility] 10-24-2023 History of Present illness Narrative Subjective Patient ID: Robby Celis is a 22 y.o. male. Robby presents for obesity recheck. He is taking the phentermine with benefit. He has not having any side effects. Did get down to 142 lb on his scale but then he ate a lot yesterday. He has also been doing a lot of weight training. He is not doing much cardio but does walk a miles at work. He is lifting weights and building muscle mass. He has another problem he would like to discuss. He feels like his ears are popping. He has a crinkling sound in his ears at times. He could not hear out of the left ear for 3 months recently and now it seems to be coming back. He has some sinus congestion but not bad. He had his tonsils removed when he was a child due to recurrent pharyngitis. The following portions of the patient's history were reviewed and updated as appropriate: allergies, current medications, past family history, past medical history, past social history, past surgical history, problem list, and medication reconciliation was completed including current medication and post discharge medication. Review of Systems Constitutional: Negative. HENT: Positive for hearing loss and rhinorrhea. Respiratory: Negative. Cardiovascular: Negative. Neurological: Negative. Psychiatric/Behavioral: Negative. Objective Physical Exam Constitutional: General: He is not in acute distress. Appearance: He is obese. HENT: Head: Normocephalic and atraumatic. Right Ear: Ear canal and external ear normal. No laceration, drainage, swelling or tenderness. A middle ear effusion is present. There is no impacted cerumen. No foreign body. No mastoid tenderness. No PE tube. No hemotympanum. Tympanic membrane is retracted. Tympanic membrane is not injected, scarred, perforated, erythematous or bulging. Left Ear: Ear canal and external ear normal. No laceration, drainage, swelling or tenderness. A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 Specialty Start Date End Date Olivier Posey MD [address] [place] [address] PCP - [facility] 01/08/24 Tender Labor Relationship Specialty Start Date End Date Olivier Posey MD [address] [place] [address] PCP - [facility] 01/08/24 Team Status: Active Member Role Status Dates Olivier Posey DO Primary Care Provider Active Team Status: Inactive Member Role Status Dates Sylvia Richards APRN Attending Provider Active Start: March 21, 2025 End: March 21, 2025 Olivier Posey DO Primary Care Provider Active Start: March 21, 2025 End: March 21, 2025 Goals (unrecognized section and content) Goals may be documented in a n alternate section FOR RECORDS PERTAINING TO PATIENTS WHO ARE OR HAVE BEEN ENROLLED IN A CHEMICAL DEPENDENCY/SUBSTANCEABUSE PROGRAM, SOME INFORMATION MAY BE OMITTED. This clinical summary was aggregated from multiple sources. Caution should be exercised in using it in the provision of clinical care. This summary normalizes information from multiple sources, and as a consequence, information in this document may materially change the coding, format and clinical context of patient data. In addition, data may be omitted in some cases. CLINICAL DECISIONS SHOULD BE BASED ON THE PRIMARY CLINICAL RECORDS. [facility]. provides no warranty or guarantee of the accuracy or completeness of information in this document.
== END 2025-03-25 10:26 | disposition left against medical advice (07) ==
LOC: ER 03-26 08:28
PROVIDERS: Emergency Provider Emergency Medicine; PCP Family Medicine
DX: Z53.21 Procedure and treatment not carried out due to patient leaving prior to being seen by health care provider (principal)